=== PATIENT | female | born 1985 | race Caucasian/White ===

== ENCOUNTER 2024-09-26 09:25 | Outpatient (REF) | payer MEDICAID, SELFPAY ==
--- NOTE | 2024-09-26 09:28 | EMG_ITS ---
Bilateral median and ulnar motor and sensory studies were performed. Bilateral radial sensory studies were performed, and paraspinal muscles were tested with a needle. IMPRESSION: 1. Moderate right and mild to moderate left median neuropathy across carpal tunnel. 2. Mild bilateral ulnar neuropathy across cubital tunnel. 3. Bilateral Asim-Jaron anastomosis, a normal variant. MD ZORAIDA Berrios/MARQUITA / [id number]
== END 2024-09-26 09:26 | disposition home or self-care (01) ==
LOC: HO.NEURO 09:25
PROVIDERS: Visit Provider Family Medicine
DX: G56.03 Carpal tunnel syndrome, bilateral upper limbs (principal)
CPT/HCPCS: 95886; 95911

== ENCOUNTER 2024-10-25 11:44 | Outpatient (REF) | payer MEDICAID, SELFPAY ==
[2024-10-25 13:09] LABS: MANUAL DIFF FLAG NO
[2024-10-25 13:21] LABS: Basophils Percent Auto 0.2 % (0-2); Eosinophils Absolute Auto 0.1 X10*3/uL (0.0-0.4); Eosinophils Percent Auto 1.3 % (0-4); Hematocrit 37.8 % (37.0-47.0); Imm Gran Abs Auto 0.05 X10*3/uL (0.00-0.03); Imm Gran Pct Auto 0.6 % (0.0-0.4); Lymphocytes Absolute Auto 2.4 X10*3/uL (1.2-4.9); Lymphocytes Percent Auto 26.9 % (20-40); Mean Corpuscular HGB Conc 31.7 g/dl (31.0-35.0); Mean Corpuscular Hemoglobin 27.3 pg (27.0-33.0); Mean Corpuscular Volume 86.1 fL (80.0-98.0); Mean Platelet Volume 11.5 fL (9.4-12.3); Monocytes Absolute Auto 0.6 X10*3/uL (0.1-1.2); Monocytes Percent Auto 6.9 % (2-11); Neutrophils Absolute Auto 5.8 x10*3/uL (2.0-8.3); Neutrophils Percent Auto 64.1 % (45-73); Platelet Count 290 X10*3/uL (160-400); Red Blood Count 4.39 X10*6/uL (4.20-5.50); Red Cell Distribution Width 14.3 % (11.0-16.0)
[2024-10-26 04:36] LABS: Syphilis Screen Nonreactive (Nonreactive)
== END 2024-10-25 11:45 | disposition home or self-care (01) ==
LOC: HO.HHCL 11:44
PROVIDERS: Visit Provider Nurse Practitioner
DX: L65.9 Nonscarring hair loss, unspecified (principal)
CPT/HCPCS: 36415; 84443; 85025; 86780

== ENCOUNTER 2025-01-01 12:53 | Outpatient (AMB) | payer MEDICAID, SELFPAY ==
--- NOTE | 2025-01-01 13:14 | MHC.OFFVIS ---
Vital Signs 01/01/25 13:28 Height 5 ft 3 in Weight 214 lb BMI 37.9 Intake Visit Reasons: New Patient - Bilateral Hand CTS - EMG Done Intake Note: Cassi is a 39 year old right hand dominant female who presents today as a new patient with complaints of bilateral hand numbness and tingling. Patient reports numbness and tingling that occurs daily and constant, making it difficult to biological chemist, squeeze, and open and close lids. Patient verbalized how the numbness never goes away and it affects ADL. Denies finger locking. Has tried braces without relief. Denies any prior injuries or surgeries the hands. Patient is requesting a letter for Welfare stating she is unable to work right now due to difficulty using her hands. Design Printing Machine Setter Required: Yes Design Printing Machine Setter Language: Poiser Balance Services: Design Printing Machine Setter Present Design Printing Machine Setter Name: Cassi Information Interpreted: non-clinical & clinical Allergies amoxicillin Allergy (Verified 01/01/25 13:29) Hives HPI HPI New Patient - Bilateral Hand CTS - EMG Done: Details: Cassi is a 39 year old right hand dominant female who presents today as a new patient with complaints of bilateral hand numbness and tingling. Patient reports numbness and tingling that occurs daily and constant, making it difficult to biological chemist, squeeze, and open and close lids. Patient verbalized how the numbness never goes away and it affects ADL. Denies finger locking. Has tried braces without relief. Denies any prior injuries or surgeries the hands. Patient is requesting a letter for Welfare stating she is unable to work right now due to difficulty using her hands. [facility] Social History (Updated 01/01/25 @ 13:31 by SOCORRO Summers) Current occupational status: unemployed Current occupation: rt handed Review of Systems Const All systems reviewed & are unremarkable except as noted in HPI and below Physical Exam Vital Signs: BMI result Body Mass Index 37.9 Extrem Other: Neuro: Diminished sensation in the tips of all digits of bilateral hands in the office today No thenar or intrinsic wasting. Good APB muscle firing and good finger cross. Vascular: Capillary refill brisk. ROM: Patient can make a fist and extend all their digits. Skin: No lacerations or abrasions noted. General: No ecchymosis. No erythema or evidence of infection. Results Reviewed Results Reviewed: IMPRESSION: 1. Moderate right and mild to moderate left median neuropathy across carpal tunnel. 2. Mild bilateral ulnar neuropathy across cubital tunnel. 3. Bilateral Asim-Jaron anastomosis, a normal variant. MD ZORAIDA Berrios/MARQUITA Assessment & Plan Assessment & Plan (1) Bilateral carpal tunnel syndrome: Code(s): G56.03 - Carpal tunnel syndrome, bilateral upper limbs Category: Medical (2) Cubital tunnel syndrome, bilateral: Code(s): G56.23 - Lesion of ulnar nerve, bilateral upper limbs Category: Medical Plan 1. Bilateral carpal tunnel syndrome 2. 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
[2025-01-01 13:28] VITALS: BMI 37.9
--- OUTSIDE RECORDS SUMMARY | 2025-01-01 13:54 | XMS_ITS | Encounter Summary ---
Author Organization [employer] Address [address] [place] [address] [address] [place] [address] Care Team Providers Care Welt Beater Name Role Phone Rossana Klein NP Primary Care Provider [phone] Mariposa Alan CNP Primary Care Provider [phone] Reason for Referral * Consultation (Routine) - Authorized Specialty Diagnoses / Procedures Referred By Frankie irwin Referred To Contact Hand Surgery Diagnoses Carpal tunnel syndrome on both sides Mariposa Alan CNP [address] [place] [address] Phone: tel: fax: [facility] [address] [place] [address] Phone: tel: Referral ID Status Reason Start Date Expiration Date Visits Requested Visits Authorized [id number] Authorized Specialty Services Required 12/13/2024 12/13/2025 6 6 Encounter Details Date Type Department Care Team ([facility] st Contact Info) Description 12/04/2024 Telephone [facility] [address] [place], [place] [phone] Vidhi Willis, RN Social History Tobacco Use Types Packs/Day Years Used Date Smoking Tobacco: Never Smokeless Tobacco: Never Alcohol Use Standard Drinks/Week Comments Never 0 (1 standard drink = 0.6 oz pur e alcohol) Housing Stability Answer Date Recorded What is your housing situation today? I have alyssia tobar 04/14/[address] you li ve. Do you have problems with any of the following? None of the above 04/14/2024 Food Insecurity Answer Date Recorded Within the past 12 months, y ou worried that your food would run out before you got money to buy more: Sometimes True 2023 Within the past 12 months,th e food you bought just didn't last and you didn't have enough money to get more: Sometimes True 04/14/2024 Transportation Answer Date Recorded In the past 12 months, has l ack of transportation kept you from medical appts, meetings, work or from getting things needed for daily living? No 04/14/2024 Utilities Answer Date Recorded In the past 12 months, has t he [employer], gas, oil or water company threatened to shut off services in your home? No 04/14/2024 Comments Unknown Sex and Gender Information Value Date Recorded Sex Assigned at Female 09/21/2022 10:29 AM EDT Legal Sex Female 10:29 AM EDT Gender Identity Female 09/21/2022 10:29 AM EDT Sexual Orientation Straight 09/21/2022 10 :29 AM EDT documented as of this encounter Miscellaneous Notes * Addendum Note - Mariposa Alan CNP - 12/13/2024 10:38 AM ESTAddended by: MARIPOSA ALAN on: 12/13/2024 10:38 AM Modules accepted: Orders * Telephone Encounter - Mariposa Alan CNP - 12/13/2024 10:31 AM EST Result Communication EMG//Nerve Conduction 09/26/2024 IMPRESSION: 1. Moderate right and mild to moderate left median neuropathy across carpal tunnel. 2. Mild bilateral ulnar neuropathy across cubital tunnel. 3. Bilateral Asim-Jaron anastomosis, a normal variant Results were successfully communicated with the Patient, a voicemail was left at the patient's phone number provided. Referral placed to hand surgeon, advised pt to be on lookout for call from hand surgeon to set up appointment. Field Hauler ID: [id number] [place] * Telephone Encounter - Vidhi Willis RN - 12/04/2024 9:10 AM EST Tc to pt via [facility] plastering supervisor id: [id number] to let them know per PCP Please inform patient of negativelabs. Advise she schedule follow-up appointment if no improvement noted in hair loss complaint. Thanks. Pt reports that they completed their EMG and no one had called them back regarding their results. Pt reporting jenny hand pain and will like to know the next steps since this is causing them to beout of work. Pt was seen with Mariposa Alan NP and recommendations were Based on EMG results, will refer to hand surgeon as needed . Results were uploaded in chart on 09/26/24 and message forwarded to referral provider for review. * Telephone Encounter - Vidhi Willis RN - 12/04/2024 9:10 AM EST ----- Message from Rossana Klein sent at 12/03/2024 4:46 PM EST ----- Please inform patient of negative labs. Advise she schedule follow-up appointment if no improvementnoted in hair loss complaint. Thanks documented in this encounter Plan of Treatment Upcoming Encounters Date Type Department Care Team (Late st Contact Info) Description 01/24/2025 11:00 AM EST Office Visit [facility] [address] [place] [phone] Rossana Klein NP [address] [place] [address] Scheduled Referrals Name Type Priority Associated Diagnoses Orde r Schedule Referral to Hand Surgery Outpatient Referral Routine Carpal tunnel syndrome on both sides Expected: 12/13/2024 (Approximate), Expires: 12/13/2025 documented as of this encounter Visit Diagnoses Diagnosis Carpal tunnel syndrome on both sides- Primary Carpal tunnel syndrome documented in this encounter Care Teams Welt Beater Relationship Specialty Start Date End Date Rossana Klein NP [address] [place] [address] PCP - General Family Medicine 04/14/24 12/07/24 Mariposa Alan CNP [address] [place] [id number] PCP - General Family Medicine 12/08/24 documented as of this encounter
--- OUTSIDE RECORDS SUMMARY | 2025-01-01 13:54 | XMS_ITS | Clinical Summary ---
Author Organization [facility] Address [address] [place] [address] Care Team Providers Care Clip Wrapper Name Role Phone Kortney Alan JAYDE Primary Care Provider [phone] Allergies Active Allergy Reactions Criticality Noted Date Comments Amoxicillin Rash Low 12/30/2018 Aspirin 03/20/2019 Shellfish-Derived Products Swelling,Hives 03/20 Medications No known medications Active Problems Problem Noted Date Diagnosed Date Carpal tunnel syndrome on both sides 09/13/2024 Assessment & Plan (09/13/2024 3:57 PM EDT): Discussed treatment modalities including nighttime bracing, cortisone injections or oral steroids for severe pain, and surgery. Pt declines steroid therapy today but requested other pain medication today, educated pt that tylenol prn may be used but will not be effective for nerve pain. Will proceed with night bracing, tylenol 650 mg prn, and EMG nerve testing. Based on EMG results, will refer to hand surgeon as needed. Pt also informed that they will need a follow up appointment with PCP to evaluate bald spot. Illiteracy 01/30/2016 Obesity 01/30/2016 Encounters Date Type Department Care Team Description 12/04/2024 Telephone [facility] [address] [place] [phone] Vidhi Willis RN 10/25/2024 10:45 AM EST Office Visit [address] [phone] Rossana Klein NP Hair loss (Primary Dx); Elevated blood pressure reading without diagnosis of hypertension 10/23/2024 Travel 10/23/2024 Telephone [facility] [address] [place] [address] Rossana Klein NP Referral from Last 3 Months Immunizations Name Administration Dates Next Due Influenza injectable quadriv alent IIV4 with preservative 01/30/2016 Tdap 04/17/2023,01/30/2016 Social History Tobacco Use Types Packs/Day Years Used Date Smoking Tobacco: Never Smokeless Tobacco: Never Tobacco Cessation:Counseling Given: Not Answered Alcohol Use Standard Drinks/Week Comments Never 0 [...] the past 12 months, has t he electric, gas, oil or water company threatened to shut off services in your home? No 04/14/2024 Comments Unknown Sex and Gender Information Value Date Recorded Sex Assigned at Female 09/21/2022 10:29 AM EDT Legal Sex Female 10:29 AM EDT Gender Identity Female 09/21/2022 10:29 AM EDT Sexual Orientation Straight 09/21/2022 10 :29 AM EDT Last Filed Vital Signs Vital Sign Reading Time Taken Comments Blood Pressure 161/84 10/25/2024 10:48 AM EST Pulse 85 10/25/2024 10:48 AM EST Temperature 35.9 ??C (96.6 ??F) 10/25/2024 10:[address] Respiratory Rate 16 10/25/2024 10:48 AM EST Oxygen Saturation 99% 10/25/2024 10:48 AM EST Inhaled Oxygen Concentration - - Weight 108 kg (238 lb 3.2 oz) 10/25/2024 10:48 A M EST Height 160 cm (5' 3 ) 10/25/2024 10:48 AM EST Body Mass Index 42.2 10/25/2024 10:48 AM EST Plan of Treatment Upcoming Encounters Date Type Department Care Team (Late st Contact Info) Description 01/24/2025 11:00 AM EST Office Visit [facility] [address] [place] [address] Rossana Klein NP [address] [place] [address] Health Maintenance Due Date Last Done Comments Depression Screening 1986 Alcohol/Substance Use Screening 1998 Family Planning (PISQ) 2001 Hepatitis C Screening 2004 Hepatitis B Vaccines (1 of 3 - 19+ 3-dose series) 2005 Pap Smear 09/10/2023 09/10/2020 COVID-19 Vaccine (3 - 2023-2 5 season) 2024 02/09/2022, 01/19/2022 Influenza Vaccine (#1) 2024 01/30/2016 SDOH Screening 04/14/2025 04/14/2024 Cervical Cancer Screening 09/10/2025 HPV/Cotest 09/10/2025 09/10/2020 Lipid Panel 09/12/2025 09/12/2020 Tobacco Screening 09/13/2025 09/13/2024 DTaP/Tdap/Td Vaccines (3 - T d or Tdap) 04/17/2033 04/17/2023, 01/30/2016 Zoster Vaccines (1 of 2) 2036 RSV Patients and Patients Aged 60 years or older (1 - 1-dose 75+ series) 2061 HIV Screening Completed 09/12/2020 HIB Vaccines Aged Out No longer eligi ble based on patient's age to complete this topic HPV Vaccines Aged Out No longer eligi ble based on patient's age to complete this topic Hepatitis A Vaccines Aged Out No long er eligible based on patient's age to complete this topic IPV Vaccines Aged Out No longer eligi ble based on patient's age to complete this topic Meningococcal Vaccine Aged Out No radha renee eligible based on patient's age to complete this topic Pneumococcal Vaccine: Pediatrics (0 to 5 Years) and At-Risk Patients (6 to 49) Years) Aged Out No longer eligible b ased on patient's age to complete this topic RSV under 20 months Aged Out No longe r eligible based on patient's age to complete this topic Rotavirus Vaccines Aged Out No longer eligible based on patient's age to complete this topic Procedures Procedure Name Priority Date/Time Associated Diagnosis Comments SYPHILIS SCREEN Routine 10/25/2024 11:50 AM EST Hair loss CBC WITH AUTO DIFFERENTIAL Routine 10/25/2024 11:50 AM EST Hair loss TSH W/REFLEX TO FT4 Routine 10/25/2024 1 1:50 AM EST Hair loss HIV 1/2 ANTIGEN/ANTIBODY, FOURTH GENERATION W/RFL Routine 09/12/2020 10:59 AM EDT LIPID PANEL, STANDARD Routine 09/12/2020 10:59 AM EDT ZZZ HISTORICAL HPV DNA, HIGH RISK, CERVICAL Routine 09/10/2020 12:02 PM EDT THINPREP IMAGING SYSTEM PAP Routine 09/10/2020 12:02 PM EDT from Last 3 Months or Most Recently Relevant to Health Maintenance Results * Syphilis Screen (10/25/2024 11:50 AM EST) Syphilis Screen Nonreactive Nonreactive [facility] Blood Venous blood specimen / Unknown 10/25/2024 11:50 AM EST 10/25/2024 12:56 PM EST us Rossana Klein NP LAB BLOOD ORDERABLES Final Resu lt [facility] [address] [place] [phone] * TSH W/Reflex to FT4 (10/25/2024 11:50 AM EST) TSH reflex Free T4 1.30 0.32 - 4.0 uIU/mL [facility] Blood Venous blood specimen / Unknown 10/25/2024 11:50 AM EST 10/25/2024 12:56 PM EST us Rossana Klein CAR CLEANER LAB BLOOD ORDERABLES Final Resu lt [facility] [address] [place] [address] [phone] * (ABNORMAL) CBC auto differential (10/25/2024 11:50 AM EST) White Blood Count 9.0 4.8 - 10.8 X10*3/uL [facility] Red Blood Count 4.39 4.20 - 5.50 X10*6/uL [facility] Hemoglobin 12.0 12.0 - 16.0 g/dl [facility] Hematocrit 37.8 37.0 - 47.0 % [facility] Mean Corpuscular Volume 86.1 80.0 - 98.0 fL [facility] Mean Corpuscular Hemoglobin 27.3 27.0 - 33.0 pg [facility] Mean Corpuscular HGB Conc 31.7 31.0 - 35.0 g/dl [facility] Red Cell Distribution Width 14.3 11.0 - 16.0 % [facility] Platelet Count 290 160 - 400 X10*3/uL [facility] Mean Platelet Volume 11.5 9.4 - 12.3 fL [facility] Neutrophils Percent Auto 64.1 45 - 73 % [facility] Imm Gran Pct Auto 0.6(H) 0.0 - 0.4 % [facility] Lymphocytes Percent Auto 26.9 20 - 40 % [facility] Monocytes Percent Auto 6.9 2 - 11 % [facility] Eosinophils Percent Auto 1.3 0 - 4 % [facility] Basophils Percent Auto 0.2 0 - 2 % [facility] NRBC Pct Auto 0.0 0.0 - 0.2 /100WBC [facility] Neutrophils Absolute Auto 5.8 2.0 - 8.3 x10*3/uL [facility] Imm Gran Abs Auto 0.05(H) 0.00 - 0.03 X10*3/uL [facility] Lymphocytes Absolute Auto 2.4 1.2 - 4.9 X10*3/uL [facility] Monocytes Absolute Auto 0.6 0.1 - 1.2 X10*3/uL [facility] Eosinophils Absolute Auto 0.1 0.0 - 0.4 X10*3/uL [facility] Basophils Absolute Auto 0.0 0.0 - 0.2 X10*3/uL [facility] NRBC Abs Auto 0.000 0.0 - 0.012 X10*3/uL [facility] Blood Venous blood specimen / Unknown 10/25/2024 11:50 AM EST 10/25/2024 12:56 PM EST [facility] Final Resu lt [facility] [address] [place] [address] [phone] * HIV 1/2 ANTIGEN/ANTIBODY,FOURTH GENERATION W/RFL (09/12/2020 10:59 AM EDT) HIV-1/2 ANTIGEN AND ANTIBODIES, 4TH GENERATION W/ REFLEX NON-REACT TABITHA NON-REACT TABITHA [facility] Comment: HIV-1 antigen and HIV-1/HIV-2 antibodies were not detected. There is no laboratory evidence of HIV infection. ?? PLEASE NOTE: This information has been disclosed to you from records whose confidentiality may be protected by state law. ??If your state requires such protection, then the state law prohibits you from making any further disclosure of the information without the specific written consent of the person to whom it pertains, or as otherwise permitted by law. A general authorization for the release of medical or other information is NOT sufficient for this purpose. ? For additional information please refer to http://education.Enova Systems.BeiBei/faq/BYC405 (This link is being provided for informational/ educational purposes only.) ? The performance of this assay has not been clinically validated in patients less than 2 years old. ?? HIV-1/2 ANTIGEN AND ANTIBODIES, 4TH GENERATION W/ REFLEX NON-REACT TABITHA NON-REACT TABITHA [facility] Comment: HIV-1 antigen and HIV-1/HIV-2 antibodies were not detected. There is no laboratory evidence of HIV infection. ?? PLEASE NOTE: This information has been disclosed to you from records whose confidentiality may be protected by state law. ??If your state requires such protection, then the state law prohibits you from making any further disclosure of the information without the specific written consent of the person to whom it pertains, or as otherwise permitted by law. A general authorization for the release of medical or other information is NOT sufficient for this purpose. ? For additional information please refer to http://education.Domob/faq/YTB167 (This link is being provided for informational/ educational purposes only.) ? The performance of this assay has not been clinically validated in patients less than 2 years old. ?? 09/12/2020 10:5 9 AM EDT Tasha Fairbanks NP LAB BLOOD ORDERABLES Final Resul t [facility] [address] * LIPID PANEL, STANDARD (09/12/2020 10:59 AM EDT) HDL Cholesterol 53 > OR = 50 mg/dL [facility] Cholesterol, Total 139 <200 mg/dL [facility] LDL Cholesterol 71 mg/dL (calc) [facility] Comment: Reference range: <100 ?? Desirable range <100 mg/dL for primary prevention; ?? <70 mg/dL for patients with CHD or diabetic patients ?? with > or = 2 CHD risk factors. ?? LDL-C is now calculated using the Paco ?? calculation, which is a validated novel method providing ?? better accuracy than the Friedewald equation in the ?? estimation of LDL-C. ?? Asim HOGUE et al. KYREE. 2013;310(19): 6390-9286 ?? (http://education.Verge Solutions/faq/DVR676) Triglycerides 72 <150 mg/dL [facility] Chol/HDLC Ratio 2.6 <5.0 (calc) [facility] Cholesterol, Total 139 <200 mg/dL [facility] HDL Cholesterol 53 > OR = 50 mg/dL [facility] Non-HDL Cholesterol 86 <130 mg/dL (calc) [facility] Comment: For patients with diabetes plus 1 major ASCVD risk ?? factor, treating to a non-HDL-C goal of <100 mg/dL ?? (LDL-C of <70 mg/dL) is considered a therapeutic ?? option. Triglycerides 72 <150 mg/dL [facility] LDL Cholesterol 71 mg/dL (calc) [facility] Comment: Reference range: <100 ?? Desirable range <100 mg/dL for primary prevention; ?? <70 mg/dL for patients with CHD or diabetic patients ?? with > or = 2 CHD risk factors. ?? LDL-C is now calculated using the Paco ?? calculation, which is a validated novel method providing ?? better accuracy than the Friedewald equation in the ?? estimation of LDL-C. ?? Asim SS et al. KYREE. 2013;310(19): 0348-8774 ?? (http://Flats&Houses.K[employer]Haven.BeiBei/faq/XFO653) Chol/HDLC Ratio 2.6 <5.0 (calc) [facility] Non-HDL Cholesterol 86 <130 mg/dL (calc) [facility] Comment: For patients with diabetes plus 1 major ASCVD risk ?? factor, treating to a non-HDL-C goal of <100 mg/dL ?? (LDL-C of <70 mg/dL) is considered a therapeutic ?? option. 09/12/2020 10:5 9 AM EDT us Tasha Fairbanks NP LAB BLOOD ORDERABLES Final Resul t [facility] [address] * HPV DNA, HIGH RISK, CERVICAL (09/10/2020 12:02 PM EDT) HPV DNA, HIGH RISK, CERVICAL Not Detected NOT DETECTED [facility] Comment: Not Detected ?? High Risk HPV types (16,18,31,33,35,39,45,51,52, 56,58,59,66,68) were not detected. Other HPV types which cause anogenital lesions may be present. The significance of the other types of HPV in malignant processes has not been established. ?? Methodology: Real Time PCR ? 09/10/2020 12:0 2 PM EDT us Tasha Fairbanks NP HISTORICAL/NON ORDERABLE LABS Fi nal Result [facility] [address] [place] [address], * THINPREP TIS PAP (09/10/2020 12:02 PM EDT) [facility] Clinical Information: SEE COMMENT [facility] Comment:None given COMMENT SEE COMMENT [facility] Comment: EXPLANATORY NOTE: ? The Pap is a screening test for cervical cancer. It is ?? not a diagnostic test and is subject to false negative ?? and false positive results. It is most reliable when a ?? satisfactory sample, regularly obtained, is submitted ?? with relevant clinical findings and history, and when ?? the Pap result is evaluated along with historic and ?? current clinical information. ?? COMMENT: SEE COMMENT [facility] Comment: This Pap test has been evaluated with computer assisted technology. X Ray Control Equipment Repairer: SEE COMMENT [facility] Comment: BK,CT(ASCP) CT screening location: [address] Infection SEE COMMENT [facility] Comment:Trichomonas vaginali s identified. Interpretation/Resu lt: SEE COMMENT [facility] Comment:Negative for intraep ithelial lesion or malignancy. LMP: SEE COMMENT [facility] Comment:NONE GIVEN Prev. BX: NONE GIVEN [facility] Prev. PAP: SEE COMMENT [facility] Comment:NONE GIVEN SOURCE: SEE COMMENT [facility] Comment:None given Statement Of Adequacy: SEE COMMENT [facility] Comment: Satisfactory for evaluation. Endocervical/transformation zone component present. 09/10/2020 12:0 2 PM EDT us Tasha Fairbanks NP LAB PATHOLOGY ORDERABLES Final R esult [facility] [address] [place] [address], from Last 3 Months or Most Recently Relevant to Health Maintenance Insurance YesVideo C3 Care Teams Clip Wrapper Relationship Specialty Start Date End Date Kortney Alan CNP [address] [place] [id number] PCP - General Family Medicine 12/08/24
--- OUTSIDE RECORDS SUMMARY | 2025-01-01 13:55 | XMS_ITS | Clinical Summary ---
Author Organization [address] Address [address] [place] [phone] Phone Care Team Providers Care Java Enterprise Architect Name Role Phone Physician, No Pcp Primary Care Provider Unavaila ble Social History Tobacco Use Types Packs/Day Years Used Date Smoking Tobacco: Never Assessed Comments Unknown Sex and Gender Information Value Date Recorded Sex Assigned at Not on file Legal Sex Female 5:38 AM EST Gender Identity Not on file Sexual Orientation Not on file Plan of Treatment Health Maintenance Due Date Last Done Comments Hepatitis B Vaccines (1 of 3 - 19+ 3-dose series) 2005 Cervical Cancer Screening: P ap Smear 2007 DTaP,Tdap,and Td Vaccines (2 - Td or Tdap) 05/15/2023 04/17/2023 Depression Screening 12/21/2023 HIV Screening 12/21/2023 Hepatitis C Screening 12/21/2023 Social Influencers of Health Screening 12/21/2023 COVID-19 Vaccine ( - 2023-2 5 season) 2024 Influenza Vaccine (#1) 2024 HIB Vaccines Aged Out No longer eligi [...] on patient's age to complete this topic MMR Vaccines Aged Out No longer eligi ble based on patient's age to complete this topic Meningococcal ACWY Vaccine Aged Out N o longer eligible based on patient's age to complete this topic Meningococcal B Vacine Aged Out No lo nger eligible based on patient's age to complete this topic Pneumococcal Vaccine: Pediat rics (0 to 5 Years) and At-Risk Patients (6 to 64 Years) Aged Out No longer eligi ble based on patient's age to complete this topic RSV Immunization Patients Un alo 20 months Aged Out No longer eligible b ased on patient's age to complete this topic Varicella Vaccines Aged Out No longer eligible based on patient's age to complete this topic Insurance MEDICAID - [place] Care Teams Java Enterprise Architect Relationship Specialty Start Date End Date Physician, No Pcp PCP - General 10/09/24
--- OUTSIDE RECORDS SUMMARY | 2025-01-01 13:55 | XMS_ITS | Encounter Summary ---
Author Organization [facility] Address [address] [facility] 7t [place] [address] Care Team Providers Care Virtualization Architect Name Role Phone Rossana Klein CLINICAL ACCOUNT LIAISON Primary Care Provider [phone] Kortney Alan ACADEMIC SUPPORT ASSISTANT Primary Care Provider [phone] Reason for Referral * Imaging (Routine) - Closed Specialty Diagnoses / Procedures Referred By Frankie t Referred To Contact Radiology Diagnoses Tubo-ovarian abscess Procedures US Pelvis Transvaginal Fern Holly FNP [address] [place] [address] Phone: tel: fax: [facility] [address], [address] [place] [address] Phone: tel: fax: Referral ID Status Reason Start Date Expiration Date Visits Re quested Visits Authorized [id number] Closed 05/16/2024 05/16/2025 1 1 Encounter Details Date Type Department Care Team (Late st Contact Info) Description 05/16/2024 Orders Only [facility] MED & PEDS [address] [place], [place] [phone] Fern Holly FNP [address] [place] [address] Tubo-ovarian abscess (Primary Dx) Social History Tobacco Use Types Packs/Day Years [...] AM EDT documented as of this encounter Plan of Treatment Upcoming Encounters Date Type Department Care Team (Late st Contact Info) Description 01/24/2025 11:00 AM EST Office Visit [facility] MEDICINE [address] [place] [address] Rossana Klein NP [address] [place] [address] documented as of this encounter Procedures Procedure Name Priority Date/Time Associated Diagnosis Comments US PELVIS TRANSVAGINAL Routine 06/16/2024 Tubo-ovarian abscess documented in this encounter Results * US Pelvis Transvaginal (06/16/2024) Anatomical Region Laterality Modality Pelvis Ultrasound us Fern ESPARZA IMG US PROCEDURES Final Result documented in this encounter Visit Diagnoses Diagnosis Tubo-ovarian abscess- Primary Salpingitis and oophoritis not specified as acute, subacute, or chronic documented in this encounter Care Teams Virtualization Architect Relationship Specialty Start Date End Date Rossana Klein NP [address] [place] [address] PCP - General Family Medicine 04/14/24 12/07/24 Kortney Alan CNP [address] [place] [address] PCP - General Family Medicine 12/08/24 documented as of this encounter
--- OUTSIDE RECORDS SUMMARY | 2025-01-01 13:55 | XMS_ITS | Encounter Summary ---
Author Organization [facility] Address [address] 7[address] [place] [address] Care Team Providers Care Featheredger And Reducer Machine Name Role Phone Rossana Klein NP Primary Care Provider [phone] Kortney Alan CNP Primary Care Provider [phone] Reason for Visit * Reason Onset Date Comments Call Back Request 05/09/2024 Encounter Details Date Type Department Care Team ([facility] st Contact Info) Description 05/09/2024 Telephone [facility] MEDICINE [address] [place], [place] [phone] Rossana Klein NP [address] [place], [place] [phone] Call Back Request Social History Tobacco Use Types Packs/Day Years [...] t he electric, gas, oil or water [employer] threatened to shut off services in your home? No 04/14/2024 Comments Unknown Sex and Gender Information Value Date Recorded Sex Assigned at Female 09/21/2022 10:29 AM EDT Legal Sex Female 10:29 AM EDT Gender Identity Female 09/21/2022 10:29 AM EDT Sexual Orientation Straight 09/21/2022 10 :29 AM EDT documented as of this encounter Miscellaneous Notes * Telephone Encounter - Fritz Stephens RN - 05/17/2024 9:46 AM EDT Noted, Thanks * Telephone Encounter - VILMA Mixon - 05/16/2024 7:58 PM EDT Transvaginal US ordered * Telephone Encounter - Fritz Stephens RN - 05/16/2024 11:02 AM EDT Please review and advise for below message. * Telephone Encounter - Melo Hurley - 05/16/2024 10:11 AM EDT Tc from [place] with [facility] calling in regards to message prior. Evangelina informed inquired about this request a total of 3 times and after the 4th request they usually cancel the the request and await the order. * Telephone Encounter - Melo Hurley - 05/09/2024 9:02 AM EDT Tc from [place] with [facility] requesting call back regarding ultrasound order. [facility] received order for ultrasound of the pelvis and Evangelina informed they usually do these orders with a transvaginal ultrasound, she wanted to know if pcp would like that done as well or clarify why not. Please contact Evangelina at [phone]. documented in this encounter Plan of Treatment Upcoming Encounters Date Type Department Care Team ([facility] st Contact Info) Description 01/24/2025 11:00 AM EST Office Visit [facility] MEDICINE [address] [place] [address] Rossana Klein NP [address] [place] [address] documented as of this encounter Visit Diagnoses Not on filedocumented in this encounter Care Teams Featheredger And Reducer Machine Relationship Specialty Start Date End Date Rossana Klein NP [address] [place] [address] PCP - General Family Medicine 04/14/24 12/07/24 Kortney Alan CNP [address] [place] [address] PCP - General Family Medicine 12/08/24 documented as of this encounter
--- OUTSIDE RECORDS SUMMARY | 2025-01-01 13:55 | XMS_ITS | Encounter Summary ---
Author Organization [employer] [facility] Address [address] 7t [place] [address] Care Team Providers Care Conservation Of Resources Commissioner Name Role Phone Rossana Klein ENERGY CONTROL OFFICER Primary Care Provider [phone] Kortney Alan CNP Primary Care Provider [phone] Reason for Visit * Reason Onset Date Comments Imagin 05/11/2024 Encounter Details Date Type Department Care Team ([facility] st Contact Info) Description 05/11/2024 Telephone [facility] MEDICINE [address] [place], [place] [phone] Rossana Klein NP [address] [place], [place] [phone] Imagin Social History Tobacco Use Types Packs/Day Years [...] t he electric, gas, oil or water [employer] threatened to shut off services in your [...] Encounter - Fritz Stephens RN - 05/17/2024 9:45 AM EDT Noted. Thanks * Telephone Encounter - VILMA Mixon - 05/16/2024 7:59 PM EDT Duplicate request * Telephone Encounter - Fritz Stephens RN - 05/11/2024 4:00 PM EDT Please review and advise for below message. * Telephone Encounter - Pavan Borjas - 05/11/2024 11:12 AM EDT Tc avelino Thomas from [facility] calling to to report after reviewing the diagnostic notes in should be a US Pelvis & Transvaginal documented in this encounter Plan of Treatment Upcoming Encounters Date Type Department Care Team (Late st Contact Info) Description 01/24/2025 11:00 AM EST Office Visit [facility] MEDICINE [address] [place] [address] Rossana Klein NP [address] [place] [address] documented as of this encounter Visit Diagnoses Not on filedocumented in this encounter Care Teams Conservation Of Resources Commissioner Relationship Specialty Start Date End Date Rossana Klein NP [address] [place] [address] PCP - General Family Medicine 04/14/24 12/07/24 Kortney Alan CNP [address] [place] [address] PCP - General Family Medicine 12/08/24 documented as of this encounter
== END 2025-01-01 14:19 | disposition home or self-care (01) ==
DX: G56.03 Carpal tunnel syndrome, bilateral upper limbs (principal); G56.23 Lesion of ulnar nerve, bilateral upper limbs
CPT/HCPCS: 99204

== ENCOUNTER → 2025-01-01 12:53 | Outpatient (BNVA) | payer MEDICAID, SELFPAY | DX: G56.03 Carpal tunnel syndrome, bilateral upper limbs (principal); G56.23 Lesion of ulnar nerve, bilateral upper limbs | CPT/HCPCS: 99212 ==

== ENCOUNTER 2025-02-19 14:02 | Outpatient (AMB) | payer MEDICAID, SELFPAY ==
[2025-02-19 14:50] VITALS: BMI 37.9
--- NOTE | 2025-02-19 14:50 | A.OFFVIS_ITS ---
Vital Signs 02/19/25 14:50 Height 5 ft 3 in Weight 214 lb BMI 37.9 Intake Visit Reasons: OV - EMG Review Bilateral Hands Intake Note: Cassi is a 39 year old right hand dominant female who presents today for an EMG review of her bilateral hands. EMG/NCS done on 09/26/24 IMPRESSION: 1. Moderate right and mild to moderate left median neuropathy across carpal tunnel. 2. Mild bilateral ulnar neuropathy across cubital tunnel. 3. Bilateral Asim-Jaron anastomosis, a normal variant. Allergies amoxicillin Allergy (Verified 02/19/25 15:22) Hives HPI HPI OV - EMG Review Bilateral Hands: Details: Cassi is a 39 year old right hand dominant female who presents today for an EMG review of her bilateral hands. 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 EMG/NCS done on 09/26/24 IMPRESSION: 1. Moderate right and mild to moderate left median neuropathy across carpal tunnel. 2. Mild bilateral ulnar neuropathy across cubital tunnel. 3. Bilateral Asim-Jaron anastomosis, a normal variant. [facility] Social History Current occupational status: unemployed Current occupation: rt handed Review of Systems Const All systems reviewed & are unremarkable except as noted in HPI and below Physical Exam Vital Signs: BMI result Body Mass Index 37.9 Extrem Other: Neuro: Diminished sensation in the tips of all digits of bilateral hands in the office today No thenar or intrinsic wasting. Good APB muscle firing and good finger cross. Vascular: Capillary refill brisk. ROM: Patient can make a fist and extend all their digits. Skin: No lacerations or abrasions noted. General: No ecchymosis. No erythema or evidence of infection. Assessment & Plan Assessment & Plan (1) Cubital tunnel syndrome, bilateral: Code(s): G56.23 - Lesion of ulnar nerve, bilateral upper limbs Category: Medical (2) Bilateral carpal tunnel syndrome: Code(s): G56.03 - Carpal tunnel syndrome, bilateral upper limbs Category: Medical Plan 1. Cubital tunnel syndrome, right 2. Carpal tunnel syndrome, right Symptoms intermittent, daily, worse at night I educated the patient about the condition. I discussed both operative and nono perative treatment options. After lengthy discussion, The patient would like to proceed with surgery. The risks and benefits of operative treatment were discussed with the patient and the patient wishes to proceed with surgery. These risks include, but are not limited to, risk of damage to blood vessels, nerves, tendons, infection, recurrence, incomplete relief of preoperative symptoms, persistent pain, possible need for further surgery, and the risks associated with regional blocks and/or anesthesia. Plan is to take the patient to the operating room at some point in the next few weeks for the following procedures: 1. Cubital tunnel release, right, under general 2. Right carpal tunnel release under general All of the preoperative paperwork including the consent was discussed today. All of the patient's questions were answered in the clinic today. The patient understands that they will be in contact with our surgical services manager to discuss scheduling their procedure. Patient denies diabetes, blood thinners, asthma, heart issues, lung issues, kidney issues, or current smoking. 3. Cubital tunnel syndrome, left Carpal tunnel syndrome, left Symptoms constant, daily, worse at night Patient would like to proceed with intervention on the right side 1st Patient was advised that if surgery goes well on the right side, we will pursue operative intervention on the left Patient was amenable to this plan Coding Level of Care Code Est Pt Level 4 (43153) Diagnoses Cubital tunnel syndrome, bilateral G56.23 Bilateral carpal tunnel syndrome G56.03
--- OUTSIDE RECORDS SUMMARY | 2025-02-19 15:53 | XMS_ITS | Clinical Summary ---
Author Organization [employer] [facility] Address [address] [facility] 7t [place] [address] Care Team Providers Care Busher Helper Name Role Phone Kortney Alan CNP Primary Care Provider [phone] Allergies Active Allergy Reactions Criticality Noted Date [...] Encounters Date Type Department Care Team Description 02/12/2025 Telephone [facility] MEDICINE [address] [place] [address] Dipti Smith CNM 02/02/2025 Population Health Risk Score [facility] (C3) Department [address] [phone] Provider, Population Health Generic 01/31/2025 Patient Outreach [facility] MED[facility]INE [address] [place] [address] Kortney Alan CNP Care Coordination (CHW outreach SDOH pest control - referral completed ) 01/31/2025 Patient Outreach [facility] [place] [address] Kortney Alan CNP Pre-visit Planning (SDOH Screening positive and Tobacco screening negative) 01/18/2025 Telephone [facility] [place] [address] Kortney Alan CNP Chart Prep 01/04/2025 Travel 12/04/2024 Telephone [facility] [place] [place] [address] Vidhi Willis, HARINI from Last 3 Months Immunizations Name Administration [...] is your housing situation today? I have alyssiakassandra tobar 01/31/[address] you li ve. Do you have problems with any of the following? Pests such as bugs, ants, or mice 01/31/2025 Food Insecurity Answer Date Recorded Within the past 12 months, y ou worried that your food would run out before you got money to buy more: Often true 01/31/2025 Within the past 12 months,th e food you bought just didn't last and you didn't have enough money to get more: Often true 10/2025 Transportation Answer Date Recorded In the past 12 months, has l ack of transportation kept you from medical appts, meetings, work or from getting things needed for daily living? No 04/14/2024 Utilities Answer Date Recorded In the past 12 months, has t he electric, gas, oil or water company threatened to shut off services in your home? No 04/14/2024 Internet Access Answer Date Recorded Internet Access Q1 Yes 01/31/2025 Internet Access Q2 Not on file 01/31/2025 Comments Unknown Sex and Gender Information Value [...] Care Team (Late st Contact Info) Description 03/07/2025 2:45 PM EDT Office Visit [facility] MEDICINE [address] [place] [address] AlanKortney, [facility] [address] [place] [address] Health Maintenance Due Date Last Done Comments Depression Screening 1986 Alcohol/Substance Use Screening 1998 Family Planning (PISQ) 2001 Hepatitis C Screening 2004 Hepatitis B Vaccines (1 of 3 - 19+ 3-dose series) 2005 COVID-19 Vaccine (2023-2 5 season) 2024 02/09/2022, 01/19/2022 Influenza Vaccine (#1) 2024 01/30/2016 Cervical Cancer Screening 09/10/2025 HPV/Cotest 09/10/2025 09/10/2020 Pap Smear 09/10/2025 09/10/2020 Lipid Panel 09/12/2025 09/12/2020 Tobacco Screening 09/13/2025 09/13/2024 SDOH Screening 01/31/2026 01/31/2025 DTaP/Tdap/Td Vaccines (3 - T d or [...] Procedure Name Priority Date/Time Associated Diagnosis Comments HIV 1/2 ANTIGEN/ANTIBODY, FOURTH GENERATION W/RFL Routine 09/12/2020 10:59 AM EDT LIPID PANEL, STANDARD Routine 09/12/2020 10:59 AM EDT ZZZ HISTORICAL HPV DNA, HIGH RISK, CERVICAL Routine 09/10/2020 12:02 PM EDT THINPREP IMAGING SYSTEM PAP Routine 09/10/2020 12:02 PM EDT from Last 3 Months or Most Recently Relevant to Health Maintenance Results * HIV 1/2 ANTIGEN/ANTIBODY,FOURTH GENERATION W/RFL (09/12/2020 10:59 AM EDT) HIV-1/2 ANTIGEN AND ANTIBODIES, 4TH GENERATION W/ REFLEX NON-REACT TABITHA NON-REACT TABITHA [facility] Comment: HIV-1 antigen and HIV-1/HIV-2 [...] ? For additional information please refer to http://Spotplex.Igneous Systems/faq/WWT401 (This link is being provided for informational/ educational purposes only.) ? The performance of this assay has not been clinically validated in patients less than 2 years old. ?? HIV-1/2 ANTIGEN AND ANTIBODIES, 4TH GENERATION W/ REFLEX NON-REACT TABITHA NON-REACT TABITHA [facility] Comment: HIV-1 antigen and HIV-1/HIV-2 [...] ? For additional information please refer to http://Spotplex.Igneous Systems/faq/JMQ310 (This link is being provided for informational/ educational purposes only.) ? The performance of this assay has not been clinically validated in patients less than 2 years old. ?? 09/12/2020 10:5 9 AM EDT us Tasha Fairbanks NP LAB BLOOD ORDERABLES Final Resul t [facility] [address] * LIPID PANEL, STANDARD (09/12/2020 10:59 [...] ?? LDL-C is now calculated using the Asim-Solis ?? calculation, which is a validated novel method providing ?? better accuracy than the Friedewald equation in the ?? estimation of LDL-C. ?? Asim HOGUE et al. KYREE. 2013;310(19): 3923-2930 ?? (http://Spotplex.iSirona/faq/BNP717) Triglycerides 72 <150 mg/dL [facility] [...] ?? LDL-C is now calculated using the Asim-Solis ?? calculation, which is a validated novel method providing ?? better accuracy than the Friedewald equation in the ?? estimation of LDL-C. ?? Asim HOGUE et al. KYREE. 2013;310(19): 5535-0440 ?? (http://Adisn/faq/VHQ753) Chol/HDLC Ratio 2.6 <5.0 (calc) [facility] Non-HDL Cholesterol 86 <130 mg/dL (calc) [facility] Comment: For patients with diabetes plus 1 major ASCVD risk ?? factor, treating to a non-HDL-C goal of <100 mg/dL ?? (LDL-C of <70 mg/dL) is considered a therapeutic ?? option. 09/12/2020 10:5 9 AM EDT Tasha Fairbanks NP LAB BLOOD ORDERABLES Final Resul t Performing Organization Address [facility] de Phone Number [facility] [address] * HPV DNA, HIGH RISK, CERVICAL (09/10/2020 12:02 PM EDT) HPV DNA, HIGH RISK, CERVICAL Not Detected NOT DETECTED [facility] Comment: Not Detected ?? High Risk HPV types (16,18,31,33,35,39,45,51,52, 56,58,59,66,68) were not detected. Other HPV types which cause anogenital lesions may be present. The significance of the other types of HPV in malignant processes has not been established. ?? Methodology: Real Time PCR ? 09/10/2020 12:0 2 PM EDT Tasha Fairbanks NP HISTORICAL/NON ORDERABLE LABS Fi nal Result Performing Organization Address [facility] de Phone Number [facility] [address] * THINPREP TIS PAP (09/10/2020 12:02 PM EDT) Clinical Information: SEE COMMENT [facility] Comment:None given COMMENT SEE COMMENT [...] has been evaluated with computer assisted technology. Accounts Receivable Associate: SEE COMMENT [facility] Comment: BK,CT(ASCP) CT screening location: [address] Infection SEE COMMENT [facility] Comment:Trichomonas vaginali s identified. Interpretation/Resu lt: SEE COMMENT [facility] Comment:Negative for intraep ithelial lesion or malignancy. LMP: SEE COMMENT [facility] Comment:NONE GIVEN Prev. BX: NONE GIVEN [facility] Prev. PAP: SEE COMMENT [facility] Comment:NONE GIVEN SOURCE: SEE COMMENT [facility] Comment:None given Statement Of Adequacy: SEE COMMENT [facility] Comment: Satisfactory for evaluation. Endocervical/transformation zone component present. 09/10/2020 12:0 2 PM EDT us Tasha Fairbanks NP LAB PATHOLOGY ORDERABLES Final R esult [facility] [address] from Last 3 Months or Most Recently Relevant to Health Maintenance [facility] Care Teams Busher Helper Relationship Specialty Start Date End Date Kortney Alan CNP [address] [place] [address] PCP - General Family Medicine 12/08/24
--- OUTSIDE RECORDS SUMMARY | 2025-02-19 15:54 | XMS_ITS | Clinical Summary ---
Author Organization [address] Address [address] [place] [phone] Phone Care Team Providers Care Field Broomer Name Role Phone Physician, No Pcp Primary [...] Cervical Cancer Screening: P ap Smear 2007 Depression Screening 12/21/2023 HIV Screening 12/21/2023 Hepatitis C Screening 12/21/2023 Social Influencers of Health Screening 12/21/2023 COVID-19 Vaccine ( - 2023-2 5 season) 2024 Influenza Vaccine (#1) 2024 DTaP,Tdap,and Td Vaccines (2 - Td or Tdap) 04/17/2033 04/17/2023 HIB Vaccines Aged Out No longer eligi [...] topic Insurance MEDICAID - [place] Care Teams Field Broomer Relationship Specialty Start Date End Date Physician, No Pcp PCP - General 10/09/24
--- OUTSIDE RECORDS SUMMARY | 2025-02-19 15:54 | XMS_ITS | Encounter Summary ---
Author Organization [employer] [facility] Address [address] [facility] 7t [place] [address] Care Team Providers Care Coach Builder Name Role Phone Rossana Klein FEED CRUSHER Primary Care Provider Kortney Alan DREDGE MASTER Primary Care Provider [phone] Reason for Referral * Imaging (Routine) - Closed Specialty Diagnoses / Procedures Referred By Frankie t Referred To Contact Radiology Diagnoses Tubo-ovarian abscess Procedures US Pelvis Transvaginal Fern Holly FNP [address] [place] [address] Phone: tel: fax: [facility] [address] [facility] [address], [address] [place] [address] Phone: tel: fax: Referral ID Status Reason Start Date Expiration Date Visits Re quested Visits Authorized [id number] Closed 05/16/2024 05/16/2025 1 1 Encounter Details Date Type Department Care Team (Late st Contact Info) Description 05/16/2024 Orders Only [facility] MED & PEDS [address] [place], [place] [phone] Fern Holly FNP [address] [place] [address] Tubo-ovarian abscess (Primary Dx) Social History Tobacco [...] Description 03/07/2025 2:45 PM EDT Office Visit [facility] MEDICINE [address] [place] [address] Kortney Alan, JAYDE [address] [place] [address] documented as of this encounter Procedures Procedure [...] chronic documented in this encounter Care Teams Coach Builder Relationship Specialty Start Date End Date Rossana Klein NP [address] [place] [address] PCP - General Family Medicine 04/14/24 12/07/24 Kortney Alan CNP [address] [place], [place] [phone] PCP - General Family Medicine 12/08/24 documented as of this encounter
--- OUTSIDE RECORDS SUMMARY | 2025-02-19 15:54 | XMS_ITS | Encounter Summary ---
Author Organization [employer] [facility] Address [address] [facility] [place]t [place] [address] Care Team Providers Care Medical Office Receptionist Assistant Name Role Phone Rossana Klein EDGE BANDER HAND Primary Care Provider [phone] Kortney Alan CNP Primary Care Provider [phone] Reason for Visit * Reason Onset Date Comments Imagin 05/11/2024 Encounter Details Date Type Department Care Team ([facility] st Contact Info) Description 05/11/2024 Telephone [facility]INE [address] [place], [place] [phone] Rossana Klein NP 230 [place], [place] [phone] Imagin Social History Tobacco Use Types Packs/Day [...] t he electric, gas, oil or water [employer] threatened to shut off services in your [...] Description 03/07/2025 2:45 PM EDT Office Visit [facility] [address] [place] [address] Kortney Alan, JAYDE 230 [place], [place] [phone] documented as of this encounter Visit Diagnoses Not on filedocumented in this encounter Care Teams Medical Office Receptionist Assistant Relationship Specialty Start Date End Date Rossana Klein NP 230 [place] [address] PCP - General Family Medicine 04/14/24 12/07/24 Kortney Alan CNP 230 [place] [address] PCP - General Family Medicine 12/08/24 documented as of this encounter
--- OUTSIDE RECORDS SUMMARY | 2025-02-19 15:54 | XMS_ITS | Encounter Summary ---
Author Organization [employer] [facility] Address [address] [facility] 7t [place] [address] Care Team Providers Care Veneer Marker Name Role Phone Rossana Klein NP Primary Care Provider Kortney Alan CNP Primary Care Provider [phone] Reason for Visit * Reason Onset Date Comments Call Back Request 05/09/2024 Encounter Details Date Type Department Care Team ([facility] st Contact Info) Description 05/09/2024 Telephone [facility] MED[facility]INE 230 [place], [place] [phone] Rossana Klein NP 230 [place], [place] [phone] Call Back Request Social History Tobacco Use [...] t he electric, gas, oil or water [employer] threatened to shut off services in your [...] - 05/16/2024 10:11 AM EDT Tc from [place] with [facility] calling in regards to message prior. Evangelina informed inquired about this request a total of 3 times and after the 4th request they usually cancel the the request and await the order. * Telephone Encounter - Melo Hurley - 05/09/2024 9:02 AM EDT Tc from [place] with [facility] requesting call back regarding ultrasound order. [facility] received order for ultrasound of the pelvis and Evangelina informed they usually do these orders with a transvaginal ultrasound, she wanted to know if pcp would like that done as well or clarify why not. Please contact Evangelina at [phone]. documented in this encounter Plan of Treatment Upcoming Encounters Date Type Department Care Team (Late st Contact Info) Description 03/07/2025 2:45 PM EDT Office Visit [facility] MEDICINE [address] [place] [phone] Kortney Alan CNP 230 [place] [address] documented as of this encounter Visit Diagnoses Not on filedocumented in this encounter Care Teams Veneer Marker Relationship Specialty Start Date End Date Rossana Klein NP [address] [place] [address] PCP - General Family Medicine 04/14/24 12/07/24 Kortney Alan CNP [address] [place] [address] PCP - General Family Medicine 12/08/24 documented as of this encounter
== END 2025-02-19 15:22 | disposition home or self-care (01) ==
LOC: HO.HOS 14:02
DX: G56.23 Lesion of ulnar nerve, bilateral upper limbs (principal); G56.03 Carpal tunnel syndrome, bilateral upper limbs
CPT/HCPCS: 99214

== ENCOUNTER → 2025-02-19 14:02 | Outpatient (BNVA) | payer MEDICAID, SELFPAY | DX: G56.23 Lesion of ulnar nerve, bilateral upper limbs (principal); G56.03 Carpal tunnel syndrome, bilateral upper limbs | CPT/HCPCS: 99212 ==

== ENCOUNTER 2025-03-15 10:40 | Outpatient (REF) | payer MEDICAID, SELFPAY ==
--- OUTSIDE RECORDS SUMMARY | 2025-03-15 12:27 | XMS_ITS | Clinical Summary ---
Author Organization [address] Address [address] [place] [phone] Phone Care Team Providers Care Marine Fitter Name Role Phone Physician, No Pcp Primary [...] Influencers of Health Screening 12/21/2023 COVID-19 Vaccine (2023-2 5 season) 2024 Influenza Vaccine (Season Ended) 2025 DTaP,Tdap,and Td Vaccines (2 - Td or [...] age to complete this topic Meningococcal B Vaccine Aged Out No l onger eligible based on patient's age to complete [...] topic Insurance MEDICAID - [place] Care Teams Marine Fitter Relationship Specialty Start Date End Date Physician, No Pcp PCP - General 10/09/24
--- OUTSIDE RECORDS SUMMARY | 2025-03-15 12:27 | XMS_ITS | Encounter Summary ---
Author Organization [employer] Address [address] [facility] 7t [place] [address] Care Team Providers Care Vice President Research Name Role Phone Rossana Klein INK GRINDER Primary Care Provider [phone] Kortney Alan SUPERVISOR TRAVEL INFORMATION CENTER Primary Care Provider [phone] Reason for Visit * Reason Onset Date Comments Imagin 05/11/2024 Encounter Details Date Type Department Care Team ([facility] st Contact Info) Description 05/11/[address] [facility] MEDICINE 230 [place], [place] [phone] Rossana Klein NP 230 [place] [address] Imagin Social History Tobacco Use Types Packs/Day Years Used Date Smoking Tobacco: Never Smokeless Tobacco: Never Alcohol Use Standard Drinks/Week Comments Never 0 (1 standard drink = 0.6 oz pur e alcohol) Housing Stability Answer Date Recorded What is your housing situation today? I have alyssia amadou 04/14/[address] you li [...] t he electric, gas, oil or water [employer] threatened to shut off services in your [...] Borjas - 05/11/2024 11:12 AM EDT Tc from Martha from [facility] calling to to report after reviewing the diagnostic notes in should be a US Pelvis & Transvaginal documented in this encounter Plan of Treatment Not on file documented as of this encounter Visit Diagnoses Not on filedocumented in this encounter Care Teams Vice President Research Relationship Specialty Start Date End Date Rossana Klein NP [address] [place] [address] PCP - General Family Medicine 04/14/24 12/07/24 Kortney Alan CNP [address] [place] [address] PCP - General Family Medicine 12/08/24 documented as of this encounter
--- OUTSIDE RECORDS SUMMARY | 2025-03-15 12:27 | XMS_ITS | Encounter Summary ---
Author Organization [employer] Address [address] [place] [address] 7 [place] [address] Care Team Providers Care Life Enrichment Director Name Role Phone Rossana Klein STUDIO POTTER Primary Care Provider [phone] Kortney Alan MASK DESIGN ENGINEER Primary Care Provider [phone] Reason for Referral * Imaging (Routine) - Closed Specialty Diagnoses / Procedures Referred By Frankie t Referred To Contact Radiology Diagnoses Tubo-ovarian abscess Procedures US Pelvis Transvaginal Fren Holly FNP 230 [place] [address] Phone: tel: fax: [facility] [address] [facility], [address] [place] [address] Phone: tel: fax: Referral ID Status Reason Start Date Expiration Date Visits Re quested Visits Authorized [id number] Closed 05/16/2024 05/16/2025 1 1 Encounter Details Date Type Department Care Team (Late st Contact Info) Description 05/16/2024 Orders Only [facility] [address] [place] [address] Fern Holly FNP 230 [place], [place] [phone] Tubo-ovarian abscess (Primary Dx) Social History Tobacco [...] as of this encounter Plan of Treatment Not on file documented as of this encounter Procedures Procedure Name Priority Date/Time Associated Diagnosis Comments US PELVIS TRANSVAGINAL Routine 06/16/2024 Tubo-ovarian abscess documented in this encounter Results * US Pelvis Transvaginal (06/16/2024) Anatomical Region Laterality Modality Pelvis Ultrasound Fern Holly REGISTERED MASSAGE THERAPIST IMG US PROCEDURES Final Result documented in this encounter Visit Diagnoses Diagnosis Tubo-ovarian abscess- Primary Salpingitis and oophoritis not specified as acute, subacute, or chronic documented in this encounter Care Teams Life Enrichment Director Relationship Specialty Start Date End Date Rossana Klein NP 230 [place] [address] PCP - General Family Medicine 04/14/24 12/07/24 Kortney Alan CNP 230 [place], [place] [phone] PCP - General Family Medicine 12/08/24 documented as of this encounter
--- OUTSIDE RECORDS SUMMARY | 2025-03-15 12:27 | XMS_ITS | Clinical Summary ---
Author Organization [employer] [facility] Address 75 [facility] 7t [place] [address] Care Team Providers Care Animal Ecologist Name Role Phone Kortney Alan CNP Primary Care Provider [phone] Allergies Active Allergy Reactions Criticality Noted Date [...] Encounters Date Type Department Care Team Description 03/07/2025 2:45 PM EDT Office Visit [facility] [address] [place] [phone] Kortney Alan CNP Encounter for screening examination for sexually transmitted disease (Primary Dx); Healthcare maintenance; Cyst of uterus 03/07/2025 Travel 02/28/2025 Patient Outreach [facility] [address] [place] [phone] Kortney Alan CNP Pre-visit Planning (SDOH screening negative and Tobacco screening negative) 02/28/2025 Telephone [facility] [address] [place] [phone] Kortney Alan CNP Chart Prep 02/12/2025 Telephone [facility] [address] [place] [address] Dipti Smith CNM 02/02/2025 Population Health Risk Score [facility] [address] [place] [phone] Provider, Population Health Generic 01/31/2025 Patient Outreach [facility] [address] [place] [address] Kortney Alan CNP Care Coordination ([facility] outreach SDOH pest control - referral completed ) 01/31/2025 Patient Outreach [facility] [place] [address] Kortney Alan CNP Pre-visit Planning (SDOH Screening positive and Tobacco screening negative) 01/18/2025 Telephone [facility] [place] [address] Kortney Alan CNP Chart Prep 01/04/2025 Travel from Last 3 Months Immunizations Name Administration Dates Next Due Influenza injectable quadriv alent IIV4 with preservative 01/30/2016 Tdap 04/17/2023,01/30/2016 Family History Medical History Relation Name Comments Diabetes type II Mother Relation Name Status Comments Mother Social History Tobacco Use Types Packs/Day Years Used Date Smoking Tobacco: Never Smokeless Tobacco: Never Tobacco Cessation:Counseling Given: Not Answered Alcohol Use Standard Drinks/Week Comments Never 0 (1 standard drink = 0.6 oz pur e alcohol) Depression Answer Date Recorded Patient Health Questionnaire-9 Score 6 03/07/2025 Patient Health Questionnaire-9 Score 6 03/07/2025 Last PHQ-9: Questionnaire Data Not on file 0 03/07/2025 Housing Stability Answer Date Recorded What is your housing situation today? I have alyssia tobar 01/31/[address] you [...] off services in your home? No 04/14/2024 Depression Answer Date Recorded Patient Health Questionnaire-2 Score 3 03/07/2025 Internet Access Answer Date Recorded Internet Access [...] Sign Reading Time Taken Comments Blood Pressure 136/82 03/07/2025 2:17 PM EDT Pulse 94 03/07/2025 2:17 PM EDT Temperature 36.5 ??C (97.7 ??F) 03/07/2025 2:17 PM ED T Respiratory Rate 20 03/07/2025 2:17 PM EDT Oxygen Saturation 98% 03/07/2025 2:17 PM EDT Inhaled Oxygen Concentration - - Weight 112 kg (246 lb 12.8 oz) 03/07/2025 2:17 P M EDT Height 160 cm (5' 3 ) 03/07/2025 2:17 PM EDT Body Mass Index 43.72 03/07/2025 2:17 PM EDT Plan of Treatment Health Maintenance Due Date Last Done Comments Alcohol/Substance Use Screening 1998 Hepatitis C Screening 2004 Hepatitis B Vaccines (1 of - 19+ 3-dose series) 2005 COVID-19 Vaccine (2023-2 5 season) 2024 02/09/2022, 01/19/2022 Influenza Vaccine (#1) 2024 01/30/2016 Cervical Cancer Screening 09/10/2025 HPV/Cotest 09/10/2025 09/10/2020 Pap Smear 09/10/2025 09/10/2020 Lipid Panel 09/12/2025 09/12/2020 SDOH Screening 01/31/2026 01/31/2025 Depression Screening 03/07/2026 03/07/2025, 03/07/2025 Tobacco Screening 03/07/2026 03/07/2025 Family Planning (PISQ) 03/08/2026 03/08/2025 DTaP/Tdap/Td Vaccines (3 - T d or [...] GENERATION W/ REFLEX NON-REACT TABITHA NON-REACT TABITHA [facility] Comment: HIV-1 antigen and HIV-1/HIV-2 [...] ? For additional information please refer to http://[employer]ge[employer].Postcron/faq/XPC219 (This link is being provided for informational/ educational purposes only.) ? The performance of this assay has not been clinically validated in patients less than 2 years old. ?? HIV-1/2 ANTIGEN AND ANTIBODIES, 4TH GENERATION W/ REFLEX NON-REACT TABITHA NON-REACT TABITHA [facility] Comment: HIV-1 antigen and HIV-1/HIV-2 [...] ? For additional information please refer to http://Tradege[employer].Postcron/faq/NTF669 (This link is being provided for informational/ educational purposes only.) ? The performance of this assay has not been clinically validated in patients less than 2 years old. ?? 09/12/2020 10:5 9 AM EDT us Tasha Fairbanks NP LAB BLOOD ORDERABLES Final Resul t [facility] [address] [place] [address], * LIPID PANEL, STANDARD (09/12/2020 10:59 AM [...] ?? Asim SS et al. KYREE. 2013;310(19): 3075-3516 ?? (http://education.[employer]/faq/XRL242) Triglycerides 72 <150 mg/dL [facility] [...] ?? Asim SS et al. KYREE. 2013;310(19): 7784-7310 ?? (http://education.[employer]/faq/RLP805) Chol/HDLC Ratio 2.6 <5.0 (calc) [facility] [...] ORDERABLES Final Resul t Performing Organization Address [facility] Phone Number [facility] [address] * HPV DNA, HIGH RISK, CERVICAL (09/10/2020 12:02 PM EDT) HPV DNA, HIGH RISK, CERVICAL Not Detected NOT DETECTED [facility] Comment: Not Detected ?? High [...] LABS Fi nal Result Performing Organization Address [facility] de Phone Number [facility] [address] [place] [address], * THINPREP TIS PAP (09/10/2020 12:02 PM EDT) Clinical Information: SEE COMMENT [facility] Comment:None given COMMENT SEE COMMENT [...] has been evaluated with computer assisted technology. Inspector Screen Printing: SEE COMMENT [facility] Comment: BK,CT(ASCP) CT screening location: [address] Infection SEE COMMENT [facility] Comment:Trichomonas vaginali s identified. Interpretation/Resu lt: SEE COMMENT [facility] Comment:Negative for intraep ithelial lesion or malignancy. LMP: SEE COMMENT [facility] Comment:NONE GIVEN Prev. BX: NONE GIVEN [facility] Prev. PAP: SEE COMMENT [facility] Comment:NONE GIVEN SOURCE: SEE COMMENT [facility] Comment:None given Statement Of Adequacy: SEE COMMENT [facility] Comment: Satisfactory for evaluation. Endocervical/transformation zone component present. 09/10/2020 12:0 2 PM EDT us Tasha Fairbanks NP LAB PATHOLOGY ORDERABLES Final R esult [facility] [address] from Last 3 Months or Most Recently Relevant to Health Maintenance Insurance [employer] Care Teams Animal Ecologist Relationship Specialty Start Date End Date Kortney Alan CNP [address] [place] [address] [phone] PCP - General Family Medicine 12/08/24
--- OUTSIDE RECORDS SUMMARY | 2025-03-15 12:27 | XMS_ITS | Encounter Summary ---
Author Organization [employer] Address [address] [facility] 7t [place] [address] Care Team Providers Care Grants Director Name Role Phone Rossana Klein TECHNICAL COMMUNICATOR Primary Care Provider [phone] Kortney Alan SOCK FOLDER Primary Care Provider [phone] Reason for Visit * Reason Onset Date Comments Call Back Request 05/09/2024 Encounter Details Date Type Department Care Team ([facility] st Contact Info) Description 05/09/[address] [facility] MEDICINE 230 [place], [place] [phone] Rossana Klein NP [address] [place] [address] Call Back Request Social History Tobacco Use [...] - 05/16/2024 10:11 AM EDT Tc from Evangelina with [facility] calling in regards to message prior. Evangelina informed inquired about this request a total of 3 times and after the 4th request they usually cancel the the request and await the order. * Telephone Encounter - Melo Hurley - 05/09/2024 9:02 AM EDT Tc from Evangelina with [facility] requesting call back regarding ultrasound order. [facility] received order for ultrasound of the pelvis and Evangelina informed they usually do these orders with a transvaginal ultrasound, she wanted to know if pcp would like that done as well or clarify why not. Please contact Evangelina at [phone]. documented in this encounter Plan of Treatment Not on file documented as of this encounter Visit Diagnoses Not on filedocumented in this encounter Care Teams Grants Director Relationship Specialty Start Date End Date Rossana Klein NP [address] [place] [address] PCP - General Family Medicine 04/14/24 12/07/24 Kortney Alan CNP [address] [place] [address] PCP - General Family Medicine 12/08/24 documented as of this encounter
[2025-03-15 13:10] LABS: MANUAL DIFF FLAG NO
[2025-03-15 13:20] LABS: Basophils Percent Auto 0.2 % (0-2); Eosinophils Absolute Auto 0.1 X10*3/uL (0.0-0.4); Eosinophils Percent Auto 1.5 % (0-4); Hemoglobin 12.4 g/dl (12.0-16.0); Imm Gran Abs Auto 0.04 X10*3/uL (0.00-0.03); Imm Gran Pct Auto 0.4 % (0.0-0.4); Lymphocytes Percent Auto 20.9 % (20-40); Mean Corpuscular HGB Conc 31.8 g/dl (31.0-35.0); Mean Corpuscular Hemoglobin 26.6 pg (27.0-33.0); Mean Corpuscular Volume 83.7 fL (80.0-98.0); Mean Platelet Volume 11.5 fL (9.4-12.3); Monocytes Absolute Auto 0.7 X10*3/uL (0.1-1.2); Monocytes Percent Auto 7.9 % (2-11); Neutrophils Absolute Auto 6.5 x10*3/uL (2.0-8.3); Neutrophils Percent Auto 69.1 % (45-73); Platelet Count 262 X10*3/uL (160-400); Red Blood Count 4.66 X10*6/uL (4.20-5.50); Red Cell Distribution Width 17.2 % (11.0-16.0); White Blood Count 9.4 X10*3/uL (4.8-10.8)
[2025-03-15 13:24] LABS: Estimated Average Glucose 131 mg/dL; Hemoglobin A1C 146.8201 umol/L; Hemoglobin A1c % 6.2 % (<6.0); Total Hemoglobin (HGBA1C) 3303.9008 umol/L
[2025-03-15 13:40] LABS: Alanine Aminotransferase 17 U/L (0-31); Alkaline Phosphatase 78 U/L (39-117); Anion Gap 11 (12-20); Aspartate Amino Transferase 21 U/L (5-31); Bilirubin Total 0.4 mg/dL (0.0-1.0); Blood Urea Nitrogen 7 mg/dL (9-16); Calcium 8.8 mg/dL (8.4-10.2); Carbon Dioxide 27 mmol/L (22-29); Chloride 105 mmol/L (96-108); Cholesterol 152 mg/dL (<200); Estimated Glomerular Filt Rate > 60; Glucose Random 109 mg/dL (60-115); HDL Cholesterol 49 mg/dL (>40); LDL Cholesterol Calculated 84 mg/dL (<100); Potassium 3.7 mmol/L (3.3-5.1); Sodium 139 mmol/L (135-145); Total Protein 7.6 g/dL (6.5-8.0); Triglycerides 95 mg/dL (<150)
[2025-03-15 13:55] LABS: HIV AB/AG Nonreactive (Nonreactive); HIV Num 1 0.05 S/CO (0.00-0.99); ~HepC Num1 0.19 S/CO (0.00-0.79); ~Hepatitis C Antibody Nonreactive (Nonreactive)
[2025-03-15 17:16] LABS: CT PCR NOT DETECTED (Not Detect.); NG PCR NOT DETECTED (Not Detect.)
[2025-03-19 17:03] LABS: RPR Rapid Plasma Reagin NON-REACTIVE (NON-REACTIVE)
== END 2025-03-15 10:41 | disposition home or self-care (01) ==
LOC: HO.HHCL 10:40
DX: Z00.00 Encounter for general adult medical examination without abnormal findings (principal); Z11.3 Encounter for screening for infections with a predominantly sexual mode of transmission
CPT/HCPCS: 80053; 80061; 83036; 85025; 86592; 86803; 87389; 87491; 87591

== ENCOUNTER 2025-03-27 07:53 | Outpatient (AMB) | payer MEDICAID, SELFPAY ==
--- OUTSIDE RECORDS SUMMARY | 2025-03-27 07:56 | XMS_ITS | Clinical Summary ---
Author Organization [employer] Address [address] [facility] 7t [place] [address] Care Team Providers Care Spice Room Worker Name Role Phone Kortney Alan CNP Primary Care Provider [phone] Allergies Active Allergy Reactions Criticality Noted Date [...] Encounters Date Type Department Care Team Description 03/21/2025 Telephone [facility] [address] [place] [phone] Arlet Wagner [place] Appointment Request 03/20/2025 Telephone [facility] [address] [place] [address] Kortney Alan CNP Results 03/07/2025 2:45 PM EDT Office Visit [facility] [address] [place] [address] Kortney Alan CNP Encounter for screening examination for sexually transmitted disease (Primary Dx); Healthcare maintenance; Cyst of uterus 03/07/2025 Travel 02/28/2025 Patient Outreach [address] [address] Kortney Alan CNP Pre-visit Planning (SDOH screening negative and Tobacco screening negative) 02/28/[address] [address] Kortney Alan CNP Chart Prep 02/12/[address] [address] Dipti Smith CNM 02/02/2025 Population Health Risk Score Community [facility] () [address] [phone] Provider, Population Health Generic 01/31/2025 Patient Outreach [address] [address] Kortney Alan CNP Care Coordination (CHW outreach SDOH pest control - referral completed ) 01/31/2025 Patient Outreach [address] [address] Kortney Alan CNP Pre-visit Planning (SDOH Screening positive and Tobacco screening negative) 01/18/[address] [address] Kortney Alan CNP Chart Prep 01/04/2025 Travel [...] 03/07/2025 2:17 PM EDT Plan of Treatment Upcoming Encounters Date Type Department Care Team (Late st Contact Info) Description 05/04/2025 10:15 AM EDT Office Visit [facility] [address] [place] [address] Kortney Alan, PROOF CARRIER [address] [place], [place] [phone] Health Maintenance Due Date Last Done Comments Alcohol/Substance Use Screening 1998 Hepatitis B Vaccines (1 of 3 - 19+ 3-dose series) 2005 COVID-19 Vaccine ( - 2023-2 5 season) 2024 02/09/2022, 01/19/2022 Influenza Vaccine (#1) 2024 01/30/2016 Cervical Cancer Screening 09/10/2025 HPV/Cotest 09/10/2025 09/10/2020 Pap Smear 09/10/2025 09/10/2020 SDOH Screening 01/31/2026 01/31/2025 Depression Screening 03/07/2026 03/07/2025, 03/07/2025 Tobacco Screening 03/07/2026 03/07/2025 Family Planning (PISQ) 03/08/2026 03/08/2025 Diabetes: Hemoglobin A1C 03/15/2026 025, 09/12/2020 Lipid Panel 03/15/2030 03/15/2025, 09/12/2020 DTaP/Tdap/Td Vaccines (3 - T d or Tdap) 04/17/2033 04/17/2023, 01/30/2016 Zoster Vaccines (1 of 2) 2036 RSV Patients and Patients Aged 60 years or older (1 - 1-dose 75+ series) 2061 HIV Screening Completed 03/15/2025, 09/12/2020 Hepatitis C Screening Completed 03/15/2025 HIB Vaccines Aged Out No longer eligi [...] Procedure Name Priority Date/Time Associated Diagnosis Comments RPR (MONITOR) W/REFL TITER Routine 03/15/2025 10:43 AM EDT Encounter for screening examination for sexually transmitted disease HEPATITIS C AB W/REFL TO HCV RNA, QN, PCR Routine 03/15/2025 10:43 AM EDT Encounter for screening examination for sexually transmitted disease HIV 1/2 ANTIGEN/ANTIBODY, FOURTH GENERATION W/RFL Routine 03/15/2025 10:43 AM EDT Encounter for screening examination for sexually transmitted disease COMPREHENSIVE METABOLIC PANEL Routine 03/15/2025 10:43 AM EDT Healthcare maintenance CBC WITH AUTO DIFFERENTIAL Routine 03/15/2025 10:43 AM EDT Healthcare maintenance HEMOGLOBIN A1C Routine 03/15/2025 10:43 AM EDT Healthcare maintenance LIPID PANEL, STANDARD Routine 03/15/2025 10:43 AM EDT Healthcare maintenance CHLAMYDIA/N. GONORRHOEAE RNA, TMA, UROGENITAL Routine 03/15/2025 10:43 AM EDT Encounter for screening examination for sexually transmitted disease ZZZ HISTORICAL HPV DNA, HIGH RISK, CERVICAL Routine 09/10/2020 12:02 PM EDT THINPREP IMAGING SYSTEM PAP Routine 09/10/2020 12:02 PM EDT from Last 3 Months or Most Recently Relevant to Health Maintenance Results * (ABNORMAL) CBC auto differential (03/15/2025 10:43 AM EDT) White Blood Count 9.4 4.8 - 10.8 X10*3/uL [facility] Red Blood Count 4.66 4.20 - 5.50 X10*6/uL [facility] Hemoglobin 12.4 12.0 - 16.0 g/dl [facility] Hematocrit 39.0 37.0 - 47.0 % [facility] Mean Corpuscular Volume 83.7 80.0 - 98.0 fL [facility] Mean Corpuscular Hemoglobin 26.6(L) 27.0 - 33.0 pg [facility] Mean Corpuscular HGB Conc 31.8 31.0 - 35.0 g/dl [facility] Red Cell Distribution Width 17.2(H) 11.0 - 16.0 % [facility] Platelet Count 262 160 - 400 X10*3/uL [facility] Mean Platelet Volume 11.5 9.4 - 12.3 fL [facility] Neutrophils Percent Auto 69.1 45 - 73 % [facility] Imm Gran Pct Auto 0.4 0.0 - 0.4 % [facility] Lymphocytes Percent Auto 20.9 20 - 40 % [facility] Monocytes Percent Auto 7.9 2 - 11 % [facility] Eosinophils Percent Auto 1.5 0 - 4 % [facility] Basophils Percent Auto 0.2 0 - 2 % [facility] NRBC Pct Auto 0.0 0.0 - 0.2 /100WBC [facility] Neutrophils Absolute Auto 6.5 2.0 - 8.3 x10*3/uL [facility] Imm Gran Abs Auto 0.04(H) 0.00 - 0.03 X10*3/uL [facility] Lymphocytes Absolute Auto 2.0 1.2 - 4.9 X10*3/uL [facility] Monocytes Absolute Auto 0.7 0.1 - 1.2 X10*3/uL [facility] Eosinophils Absolute Auto 0.1 0.0 - 0.4 X10*3/uL [facility] Basophils Absolute Auto 0.0 0.0 - 0.2 X10*3/uL [facility] NRBC Abs Auto 0.000 0.0 - 0.012 X10*3/uL [facility] Blood Venous blood specimen / Unknown 03/15/2025 10:43 AM EDT 03/15/2025 1:07 PM EDT [facility] LAB BLOOD ORDERABLES Radha l Result Performing Organization Address [facility]/ZIP Co de Phone Number [facility] [address] [place] [phone] * Hepatitis C Antibody with Reflex to HCV, RNA, Quantitative, Real-Time PCR (03/15/2025 10:43 AM EDT) Pathologist [facility] Hepatitis C Antibody Nonreactive Nonreactive [facility] Comment:Antibodies to HCV no t detected; does not exclude early acuteHCV infection. Blood Venous blood specimen / Unknown 03/15/2025 10:43 AM EDT 03/15/2025 1:07 PM EDT [facility] LAB BLOOD ORDERABLES Radha l Result Performing Organization Address [facility]/ZIP Co de Phone Number [facility] [address] [place] [phone] * Chlamydia/N. Gonorrhoeae RNA, TMA, Urogenitial (03/15/2025 10:43 AM EDT) Pathologist [facility] CT PCR NOT DETECTED Not Detect. [facility] Comment:A not detected test result does not exclude the possibilityof infection because test results can be affected byimproper specimen collection, concurrent antibiotic therapy,or the number of organisms in the specimen which may bebelow the sensitivity of the test. As with many diagnostictests, results from the Xpert CT/NG assay should beinterpreted in conjunction with other laboratory andclinical data available to the clinician.Xpert CT/NG performance has not been evaluated in patientsless than 14 years of age. The assay should not be used forthe evaluationof suspected sexual abuse or for other medico-legalindications. Additional testing is recommended in anycircumstance when false positive or false negative resultscould lead to adverse medical, social or psychologicalconsequences. NG PCR NOT DETECTED Not Detect. [facility] Comment:A not detected test result does not exclude the possibilityof infection because test results can be affected byimproper specimen collection, concurrent antibiotic therapy,or the number of organisms in the specimen which may bebelow the sensitivity of the test. As with many diagnostictests, results from the Xpert CT/NG assay should beinterpreted in conjunction with other laboratory andclinical data available to the clinician.Xpert CT/NG performance has not been evaluated in patientsless than 14 years of age. The assay should not be used forthe evaluationof suspected sexual abuse or for other medico-legalindications. Additional testing is recommended in anycircumstance when false positive or false negative resultscould lead to adverse medical, social or psychologicalconsequences. Urine (Urine, Random) 03/15/2025 10:43 AM EDT 03/15/2025 1:02 PM EDT Narrative [facility] - 03/15/2025 5:17 PM EDT Urine [facility] LAB MICROBIOLOGY - GENERA L ORDERABLES Final Result Performing Organization Address City/[facility] Co de Phone Number [facility] [address] [place] [phone] * RPR (Monitor) with Reflex to??Titer (03/15/2025 10:43 AM EDT) RPR (Monitor) w/Refl Titer NON-REACTI VE NON-REACT TABITHA [facility] Comment:THIS TEST WAS PERFOR MED AT:[facility] [place] [phone] BANG MD Rapid Plasma Reagin Ab Titer TNP [facility] Blood Venous blood specimen / Unknown 03/15/2025 10:43 AM EDT 03/15/2025 1:07 PM EDT [facility] LAB BLOOD ORDERABLES Radha l Result Performing Organization Address City/[facility] Co de Phone Number [facility] [address] [place] [phone] [phone] * HIV-1/2 Antigen and Antibodies, Fourth Generation, with Reflexes (03/15/2025 10:43 AM EDT) HIV AB/AG Nonreactive Nonreactive [facility] Comment:HIV-1 p24 Ag and/or HIV-1/HIV-2 Ab not detected.A test result that is nonreactive does not exclude thepossibility of exposure to or infection with HIV-1 and/orHIV-2. Nonreactive results in this assay for individualswith prior exposure to HIV-1 and/or HIV-2 may be due toantigen and antibody levels that are below the limit ofdetection of this assay.The [employer] HIV Ag/Ab Combo assay result andsupplemental assay results should be interpreted inconjunction with the patient's clinical presentation,history and other laboratory results. If the results areinconsistent with clinical evidence, additional testing issuggested to confirm the result. Blood Venous blood specimen / Unknown 03/15/2025 10:43 AM EDT 03/15/2025 1:07 PM EDT [facility] LAB BLOOD ORDERABLES Radha l Result Performing Organization Address [facility] Co de Phone Number [facility] [address] [place] [address] [phone] * (ABNORMAL) Hemoglobin A1c (03/15/2025 10:43 AM EDT) Hemoglobin A1c 6.2(H) <6.0 % [facility] Comment:Hemoglobin A1C Refer ence Range Adults: 4.8 - 6.0 % Non diabetic: < 6.0 % Goal: < 7.0 %Additional Action Suggested: > 8.0 %Note: Hemoglobin A1c results are invalid for patients with abnormal amounts of HbF. Blood transfusions may impact the HbA1c concentration in the patient sample. Estimated Average Glucose 131 mg/dL [facility] Comment:eAG = Estimated ave rage glucose which is %A1C expressed asaverage glucose, using the formula of the I4Z-SifnhdxSuqjhla Glucose study (ADAG), Diabetes Care, Vol.31,#8,Jun. 2007 Blood Venous blood specimen / Unknown 03/15/2025 10:43 AM EDT 03/15/2025 1:07 PM EDT [facility] LAB BLOOD ORDERABLES Radha l Result Performing Organization Address [facility] Co de Phone Number [facility] [address] [place] [phone] * Lipid Panel, Standard (03/15/2025 10:43 AM EDT) Triglycerides 95 <150 mg/dL [facility] Comment:Desirable Triglyceri de: less than 150 mg/dLBorderline High Triglyceride 150-199 mg/dLHigh Triglyceride: 200-499 mg/dLVery High Triglyceride: greater than or equal to 5OO mg/dL Cholesterol 152 <200 mg/dL [facility] Comment:Desirable Cholestero l: less than 200 mg/dLBorderline High Cholesterol: 200-239 mg/dLHigh Cholesterol: greater than 239 mg/dL LDL Cholesterol Calculated 84 <100 mg/dL [facility] Comment:Desirable LDL: less than 100 mg/dLNear Optimal/Above Optimal LDL: 110- 129 mg/dLBorderline High LDL: 130-159 mg/dLHigh LDL: 160-189 mg/dLVery High LDL: greater than or equal to 190 mg/dL HDL Cholesterol 49 >40 mg/dL [facility] Comment:Desirable HDL: great er than 40 mg/dL Note: This HDL assay may give artificially low results in patients with liver disease. Blood Venous blood specimen / Unknown 03/15/2025 10:43 AM EDT 03/15/2025 1:07 PM EDT [facility] LAB BLOOD ORDERABLES Radha l Result Performing Organization Address [facility]/ZIP Co de Phone Number [facility] [address] [place] [phone] * (ABNORMAL) Comprehensive Metabolic Panel (03/15/2025 10:43 AM EDT) Pathologist [facility] Sodium 139 135 - 145 mmol/L [facility] Potassium 3.7 3.3 - 5.1 mmol/L [facility] Chloride 105 96 - 108 mmol/L [facility] Carbon Dioxide 27 22 - 29 mmol/L [facility] Anion Gap 11(L) 12 - 20 [facility] Urea Nitrogen (BUN) 7(L) 9 - 16 mg/dL [facility] Creatinine, Serum 0.64 0.5 - 1.4 mg/dL [facility] Estimated Glomerular Filt Rate >60 [facility] Comment:Chronic Kidney Disea se: Estimated GFR < 60 mL/min/1.80e2Xpzrph Kidney Disease: Estimated GFR < 15 mL/min/1.73m2 Glucose 109 60 - 115 mg/dL [facility] Calcium 8.8 8.4 - 10.2 mg/dL [facility] Bilirubin, Total 0.4 0.0 - 1.0 mg/dL [facility] Aspartate Amino Transferase 21 5 - 31 U/L [facility] Alanine Aminotransferase 17 0 - 31 U/L [facility] Total Protein 7.6 6.5 - 8.0 g/dL [facility] Albumin Level 4.0 3.5 - 5.0 g/dL [facility] Alkaline Phosphatase 78 39 - 117 U/L [facility] Blood Venous blood specimen / Unknown 03/15/2025 10:43 AM EDT 03/15/2025 1:07 PM EDT Kortney Alan [facility] BLOOD ORDERABLES Radha l Result [facility] [address] [place] [address] [phone] * HPV DNA, HIGH RISK, CERVICAL (09/10/2020 12:02 PM EDT) Pathologist [facility] HPV DNA, HIGH RISK, CERVICAL Not Detected NOT DETECTED [facility] Comment: Not Detected ?? High Risk HPV types (16,18,31,33,35,39,45,51,52, 56,58,59,66,68) were not detected. Other HPV types which cause anogenital lesions may be present. The significance of the other types of HPV in malignant processes has not been established. ?? Methodology: Real Time PCR ? 09/10/2020 12:0 2 PM EDT us Tasha Fairbanks NP HISTORICAL/NON ORDERABLE LABS Fi nal Result [facility] [address] [place] [address], * THINPREP TIS PAP (09/10/2020 12:02 PM EDT) Clinical Information: SEE COMMENT [facility] Comment:None given COMMENT SEE [...] has been evaluated with computer assisted technology. Janitor And Cleaner: SEE COMMENT [facility] Comment: BK,CT(ASCP) CT screening location: [address] Infection [facility] Comment:Trichomonas vaginali s identified. Interpretation/Resu lt: SEE COMMENT [facility] Comment:Negative for intraep ithelial lesion or malignancy. LMP: [facility] Comment:NONE GIVEN Prev. BX: NONE GIVEN [facility] Prev. PAP: [facility] Comment:NONE GIVEN SOURCE: [facility] Comment:None given Statement Of Adequacy: SEE COMMENT [facility] Comment: Satisfactory for evaluation. Endocervical/transformation zone component present. 09/10/2020 12:0 2 PM EDT us Tasha Fairbanks NP LAB PATHOLOGY ORDERABLES Final R esult [facility] [address] [place] [address], from Last 3 Months or Most Recently Relevant to Health Maintenance Insurance [employer] Care Teams Spice Room Worker Relationship Specialty Start Date End Date Kortney Alan CNP [address] [place] [phone] PCP - General Family Medicine 12/08/24
--- OUTSIDE RECORDS SUMMARY | 2025-03-27 07:56 | XMS_ITS | Encounter Summary ---
Author Organization [employer] Address [address] [place] [address] 7 [place] [address] Care Team Providers Care Licensing Officer Name Role Phone Rossana Klein LINE DRIVER Primary Care Provider Kortney Alan BUZZSAW OPERATOR HELPER Primary Care Provider [phone] Reason for Referral * Imaging (Routine) - Closed Specialty Diagnoses / Procedures Referred By Frankie irwin Referred To Contact Radiology Diagnoses Tubo-ovarian abscess Procedures US Pelvis Transvaginal Fern Holly FNP [address] [place] [address] Phone: tel: fax: [facility] [address] [facility] [address], [address] [place] [address] Phone: tel: fax: Referral ID Status Reason Start Date Expiration Date Visits Re quested Visits Authorized [id number] Closed 05/16/2024 05/16/2025 1 1 Encounter Details Date Type Department Care Team (Late st Contact Info) Description 05/16/[address] [facility] [address] [place] [address] Fern Holly FNP [address] [place], [place] [phone] Tubo-ovarian abscess (Primary Dx) Social History Tobacco Use Types Packs/Day Years Used Date Smoking Tobacco: Never Smokeless Tobacco: Never Alcohol Use Standard Drinks/Week Comments Never 0 (1 standard drink = 0.6 oz pur e alcohol) Housing Stability Answer Date Recorded What is your housing situation today? I have alyssia sing 04/14/[address] you li [...] Description 05/04/2025 10:15 AM EDT Office Visit [facility] [address] [place], [place] [phone] Kortney Alan CNP [address] [place], [place] [phone] documented as of this encounter Procedures Procedure Name Priority Date/Time Associated Diagnosis Comments US PELVIS TRANSVAGINAL Routine 06/16/2024 Tubo-ovarian abscess documented in this encounter Results * US Pelvis Transvaginal (06/16/2024) Anatomical Region Laterality Modality Pelvis Ultrasound us Fern [facility] US PROCEDURES Final Result documented in this encounter Visit Diagnoses Diagnosis Tubo-ovarian abscess- Primary Salpingitis and oophoritis not specified as acute, subacute, or chronic documented in this encounter Care Teams Licensing Officer Relationship Specialty Start Date End Date Rossana Klein NP [address] [place], [place] [phone] PCP - General Family Medicine 04/14/24 12/07/24 Kortney Alan CNP [address] [place], [place] [phone] PCP - General Family Medicine 12/08/24 documented as of this encounter
--- OUTSIDE RECORDS SUMMARY | 2025-03-27 07:56 | XMS_ITS | Encounter Summary ---
Author Organization [employer] Address [address] [place] [address] Care Team Providers Care Throw Out Clerk Name Role Phone Rossana Klein EXTRUSION SUPERVISOR Primary Care Provider [phone] Kortney Alan KINDER TEACHER Primary Care Provider [phone] Reason for Visit * Reason Onset Date Comments Imagin 05/11/2024 Encounter Details Date Type Department Care Team ([facility] st Contact Info) Description 05/11/2024 Telephone [facility] MED[facility] [address] [place], [place] [phone] Rossana Klein NP [address] [place] [address] Imagin Social History Tobacco Use Types Packs/Day [...] the past 12 months, has t he [employer], oil or water [employer] threatened to shut off services in your [...] Description 05/04/2025 10:15 AM EDT Office Visit [facility] [address] [place], [place] [phone] Kortney Alan, JAYDE [address] [place] [address] documented as of this encounter Visit Diagnoses Not on filedocumented in this encounter Care Teams Throw Out Clerk Relationship Specialty Start Date End Date Rossana Klein NP [address] [place], [place] [phone] PCP - General Family Medicine 04/14/24 12/07/24 Kortney Alan CNP [address] [place], [place] [phone] PCP - General Family Medicine 12/08/24 documented as of this encounter
--- OUTSIDE RECORDS SUMMARY | 2025-03-27 07:56 | XMS_ITS | Encounter Summary ---
Author Organization [employer] Address [address] [facility] 7t [place] [address] Care Team Providers Care Coremaking Machine Operator Name Role Phone Rossana Klein NP Primary Care Provider [phone] Kortney Alan CNP Primary Care Provider [phone] Reason for Visit * Reason Onset Date Comments Call Back Request 05/09/2024 Encounter Details Date Type Department Care Team ([facility] st Contact Info) Description 05/09/2024 Telephone [facility] [address] [place], [place] [phone] Rossana Klein NP [address] [place], [place] [phone] Call Back Request Social History Tobacco Use [...] t he electric, gas, oil or water Group [employer] threatened to shut off services in your [...] clarify why not. Please contact Evangelina at [phone]. documented in this encounter Plan of Treatment Upcoming Encounters Date Type Department Care Team (Late st Contact Info) Description 05/04/2025 10:15 AM EDT Office Visit [facility] [address] [place] [address] Kortney Alan CNP [address] [place] [address] documented as of this encounter Visit Diagnoses Not on filedocumented in this encounter Care Teams Coremaking Machine Operator Relationship Specialty Start Date End Date Rossana Klein NP [address] [place] [phone] PCP - General Family Medicine 04/14/24 12/07/24 Kortney Alan CNP [address] [place] [phone] PCP - General Family Medicine 12/08/24 documented as of this encounter
--- OUTSIDE RECORDS SUMMARY | 2025-03-27 07:56 | XMS_ITS | Clinical Summary ---
Author Organization [address] Address [address] [place] [phone] Phone Care Team Providers Care Assistant Toddler Teacher Name Role Phone Physician, No Pcp Primary [...] topic Insurance MEDICA[place] - [place] Care Teams Assistant Toddler Teacher Relationship Specialty Start Date End Date Physician, No Pcp PCP - General 10/09/24
--- NOTE | 2025-03-27 08:07 | MHC.OFFVIS ---
Vital Signs 03/27/25 08:08 Height 5 ft 3 in Weight 214 lb BMI 37.9 Intake Visit Reasons: Preop RT cubital/CTR 04/02/25 AR Intake Note: Cassi is a 40 year old female who presents today for a pre operative appointment - she is booked for a Right cubital tunnel and carpal tunnel release on 04/02/[address] Francis Steam Boiler Fireman Required: Yes Steam Boiler Fireman Language: Patient Financial Coordinator Name: Sandra QUINTANILLA LARISA Allergies amoxicillin Allergy (Verified 03/27/25 08:08) Hives HPI HPI Preop RT cubital/CTR 04/02/25 AR: Details: Cassi is a 40 year old female who presents today for a pre operative appointment - she is booked for a Right cubital tunnel and carpal tunnel release on 04/02/[address] Francis [facility] Social History Current occupational status: unemployed Current occupation: rt handed Review of Systems Const All systems reviewed & are unremarkable except as noted in HPI and below Physical Exam Vital Signs: BMI result Body Mass Index 37.9 Extrem Other: Neuro: Diminished sensation in the tips of all digits of bilateral hands in the office today No thenar or intrinsic wasting. Good APB muscle firing and good finger cross. Vascular: Capillary refill brisk. ROM: Patient can make a fist and extend all their digits. Skin: No lacerations or abrasions noted. General: No ecchymosis. No erythema or evidence of infection. Assessment & Plan Assessment & Plan (1) Cubital tunnel syndrome, bilateral: Code(s): G56.23 - Lesion of ulnar nerve, bilateral upper limbs Category: Medical (2) Bilateral carpal tunnel syndrome: Code(s): G56.03 - Carpal tunnel syndrome, bilateral upper limbs Category: Medical Plan 1. Cubital tunnel syndrome, right 2. Carpal tunnel syndrome, right Symptoms intermittent, daily, worse at night I educated the patient about the condition. I discussed both operative and nonoperative treatment options. After lengthy discussion, The patient would like to proceed with surgery. The risks and benefits of operative treatment were discussed with the patient and the patient wishes to proceed with surgery. These risks include, but are not limited to, risk of damage to blood vessels, nerves, tendons, infection, recurrence, incomplete relief of preoperative symptoms, persistent pain, possible need for further surgery, and the risks associated with regional blocks and/or anesthesia. Plan is to take the patient to the operating room at some point in the next few weeks for the following procedures: 1. Cubital tunnel release, right, under general 2. Right carpal tunnel release under general All of the preoperative paperwork including the consent was discussed today. All of the patient's questions were answered in the clinic today. The patient understands that they will be in contact with our surgical rn to discuss scheduling their procedure. Patient denies diabetes, blood thinners, asthma, heart issues, lung issues, kidney issues, or current smoking. 3. Cubital tunnel syndrome, left Carpal tunnel syndrome, left Symptoms constant, daily, worse at night Patient would like to proceed with intervention on the right side 1st Patient was advised that if surgery goes well on the right side, we will pursue operative intervention on the left Patient was amenable to this plan Coding Level of Care Code Est Pt Level 4 (22316) Diagnoses Cubital tunnel syndrome, bilateral G56.23 Bilateral carpal tunnel syndrome G56.03
[2025-03-27 08:08] VITALS: BMI 37.9
== END 2025-03-27 08:29 | disposition home or self-care (01) ==
LOC: HO.HOS 07:53
DX: G56.23 Lesion of ulnar nerve, bilateral upper limbs (principal); G56.03 Carpal tunnel syndrome, bilateral upper limbs
CPT/HCPCS: 99024

== ENCOUNTER → 2025-03-27 07:53 | Outpatient (BNVA) | payer MEDICAID, SELFPAY | DX: G56.03 Carpal tunnel syndrome, bilateral upper limbs (principal); G56.23 Lesion of ulnar nerve, bilateral upper limbs | CPT/HCPCS: 99212 ==

== ENCOUNTER 2025-04-02 06:49 | Day surgery (SDC) | payer MEDICAID, SELFPAY ==
[2025-03-29 11:31] VITALS: BMI 37.9
[2025-03-29 14:18] VITALS: BMI 38.1
--- NOTE | 2025-03-30 11:47 | HO.ANESPROP2 ---
Documented by User: Karla Galvin NP 03/30/25 11:48 HPI - Anesthesia Eval Consult details Narrative: 40yo F for Right Cubital Tunnel Release, Carpal Tunnel Release PMFSH Active Problems Active Problems: All Active Problems Cubital tunnel syndrome, bilateral (Acute) Bilateral carpal tunnel syndrome (Acute) Past Medical History Medical History Marijuana use History of ganglion cyst Obesity (BMI 30-39.9) Family History Family History (Updated 03/29/25 @ 14:28 by Janelle Christie RN) Son Adverse effect of anesthesia Surgical History Surgical History Hx of tubal ligation (~2010) Social History Social History (Updated 03/29/25 @ 14:29 by Janelle Christie RN) Household Members: Children Household Members Other:: children 18+14 yrs old Housing: Apartment Are you a primary skin care consultant to a significant other at home: Yes (children, sister to help post-op) Do you presently have visiting nurse or other home services: No Patient Tobacco Use Status: Never used Tobacco Use of substances other than those prescribed or required for medical reasons: Yes Substance Use Type: Marijuana Substance Use Frequency: Daily Have you been hit, kicked, punched, or otherwise hurt by someone within the past year? If so, by whom?: No Advance Directives: No Advance Directives Information Provided: Yes Advance Directives on File: No Patient : No FDLMP: 03/29/2025 : No Poor oral hygiene: No Current occupational status: unemployed Current occupation: rt handed Meds Allergies Allergy/AdvReac Type Severity Reaction Status Date / Time amoxicillin Allergy Intermediate Hives Verified 04/02/25 08:21 aspirin Allergy Intermediate Rash Verified 04/02/25 08:21 Home Medications ?Medication ?Instructions ?Recorded ?Confirmed ?Last Taken ?Type No Known Home Meds 02/19/25 03/29/25 Unknown History Exam Height,Weight and Vital Signs: Height 5 ft 3 in Weight 97.522 kg Assessment and Plan Assessment Anesthesia Assessment: Chart Reviewed Documented by User: Cyndi Hickman MD 04/02/25 09:30 [facility], [facility] Past Medical History Medical History Marijuana use History of ganglion cyst Obesity (BMI 30-39.9) Family History Family History (Updated 03/29/25 @ 14:28 by Janelle Christie RN) Son Adverse effect of anesthesia Family history of problems with anesthesia: No Surgical History Surgical History Hx of tubal ligation (~2010) History of Problems with Anesthesia: No Social History Social History (Updated 03/29/25 @ 14:29 by Janelle Christie RN) Household Members: Children Household Members Other:: children 18+14 yrs old Housing: Apartment Are you a primary skin care consultant to a significant other at home: Yes (children, sister to help post-op) Do you presently have visiting nurse or other home services: No Patient Tobacco Use Status: Never used Tobacco Use of substances other than those prescribed or required for medical reasons: Yes Substance Use Type: Marijuana Substance Use Frequency: Daily Have you been hit, kicked, punched, or otherwise hurt by someone within the past year? If so, by whom?: No Advance Directives: No Advance Directives Information Provided: Yes Advance Directives on File: No Patient : No FDLMP: 03/29/2025 : No Poor oral hygiene: No Current occupational status: unemployed Current occupation: rt handed Meds Allergies Allergy/AdvReac Type Severity Reaction Status Date / Time amoxicillin Allergy Intermediate Hives Verified 04/02/25 08:21 aspirin Allergy Intermediate Rash Verified 04/02/25 08:21 Home Medications ?Medication ?Instructions ?Recorded ?Confirmed ?Last Taken ?Type No Known Home Meds 02/19/25 03/29/25 Unknown History Exam Airway Mallampati Class: II (missing molars) TM Dist: >3cm Neck ROM: Full Heart: rrr Lungs: cta Assessment and Plan Assessment Anesthesia Assessment: Anesthesia Plan Discussed Final Anesthetic Review Family History of Problems with Anesthesia: No History of Problems with Anesthesia: No NPO: Yes ASA Class: II Final Preanesthetic Review: No Changes in Pt Med Stat, Meds/Allgs Chart Reviewed and Consent Obtained/Reviewed Patient Risk: Low Procedure Risk: Low Anesthetic Plan Anesthetic Plan: GA Disposition: Standard PACU
--- OUTSIDE RECORDS SUMMARY | 2025-03-30 11:58 | XMS_ITS | Encounter Summary ---
Author Organization [employer] Address [address] [facility] 7t [place] [address] Care Team Providers Care Steam Heating Installer Name Role Phone Rossana Klein FEATHER SAWYER Primary Care Provider [phone] Kortney Alan AMERICANIZATION TEACHER Primary Care Provider [phone] Reason for Visit * Reason Onset Date Comments Imagin 05/11/2024 Encounter Details Date Type Department Care Team ([facility] st Contact Info) Description 05/11/[address] [facility] MEDICINE [address] [place], [place] [phone] Rossana Klein NP [address] [place] [address] Imagin Social History Tobacco Use Types Packs/Day [...] the past 12 months, has t he [employer], [employer], oil or water [employer] threatened to shut off services in your [...] 10:15 AM EDT Office Visit [facility] MEDICINE [address] [place], [place] [phone] Kortney Alan, JAYDE [address] [place] [address] 06/14/2025 11:15 AM EDT Office Visit [facility] OPTOMETRY [address] [place], [place] [phone] Herbiejg Kirsten, OD [address] [place], [place] [phone] documented as of this encounter Visit Diagnoses Not on filedocumented in this encounter Care Teams Steam Heating Installer Relationship Specialty Start Date End Date Rossana Klein NP [address] [place], [place] [phone] PCP - General Family Medicine 04/14/24 12/07/24 Kortney Alan CNP [address] [place], [place] [phone] PCP - General Family Medicine 12/08/24 documented as of this encounter
--- OUTSIDE RECORDS SUMMARY | 2025-03-30 11:58 | XMS_ITS | Encounter Summary ---
Author Organization [employer] Address [address] [facility] 7t [place] [address] Care Team Providers Care Bilingual Sales Consultant Name Role Phone Rossana Klein NP Primary Care Provider [phone] Kortney Alan CNP Primary Care Provider [phone] Reason for Visit * Reason Onset Date Comments Call Back Request 05/09/2024 Encounter Details Date Type Department Care Team ([facility] st Contact Info) Description 05/09/2024 Telephone [facility] MEDICINE [address] [place], [place] [phone] Rossana Klein NP [address] [place], [place] [phone] Call Back Request Social History Tobacco Use [...] t he electric, gas, oil or water [employer] threatened to shut off services in your [...] clarify why not. Please contact Evangelina at [phone]. documented in this encounter Plan of Treatment Upcoming Encounters Date Type Department Care Team (Late st Contact Info) Description 05/04/2025 10:15 AM EDT Office Visit [facility] MEDICINE [address] [place] [address] Kortney Alan CNP [address] [place] [address] 06/14/2025 11:15 AM EDT Office Visit [facility] OPTOMETRY [address] [place], [place] [phone] Kirsten Morfin, OD [address] [place] [address] documented as of this encounter Visit Diagnoses Not on filedocumented in this encounter Care Teams Bilingual Sales Consultant Relationship Specialty Start Date End Date Rossana Klein NP [address] [place] [phone] PCP - General Family Medicine 04/14/24 12/07/24 Kortney Alan CNP [address] [place] [address] [phone] PCP - General Family Medicine 12/08/24 documented as of this encounter
--- OUTSIDE RECORDS SUMMARY | 2025-03-30 11:58 | XMS_ITS | Clinical Summary ---
Author Organization [address] Address [address] [place] [phone] Phone Care Team Providers Care Sugar Refiner Name Role Phone Physician, No Pcp Primary [...] topic Insurance MEDICAID - [place] Care Teams Sugar Refiner Relationship Specialty Start Date End Date Physician, No Pcp PCP - General 10/09/24
--- OUTSIDE RECORDS SUMMARY | 2025-03-30 11:58 | XMS_ITS | Clinical Summary ---
Author Organization [employer] Address [address] [facility] 7t [place] [address] Care Team Providers Care Industrial Machine System Technician Name Role Phone Krotney Alan CNP Primary Care Provider [phone] Allergies Active Allergy Reactions Criticality Noted Date [...] Type Department Care Team Description 03/21/2025 Telephone [facility] [address] [place] [address] Arlet Wagner [place] Appointment Request 03/20/2025 Telephone [facility] [address] [place] [address] Kortney Alan CNP Results 03/07/2025 2:45 PM EDT Office Visit [facility] [address] [place] [address] Kortney Alan CNP Encounter for screening examination for sexually transmitted disease (Primary Dx); Healthcare maintenance; Cyst of uterus 03/07/2025 Travel 02/28/2025 Patient Outreach [address] [address] Kortney Alan CNP Pre-visit Planning (SDOH screening negative and Tobacco screening negative) 02/28/[address] [address] Kortney Alan CNP Chart Prep 02/12/[address] [address] Dipti Smith CNM 02/02/2025 Population Health Risk Score Community [facility] () [address] [phone] Provider, Population Health Generic 01/31/2025 Patient Outreach [address] [address] Kortney Alan CNP Care Coordination (CHW outreach SDOH pest control - referral completed ) 01/31/2025 Patient Outreach [address] [address] Kortney Alan CNP Pre-visit Planning (SDOH Screening positive and Tobacco screening negative) 01/18/[address] [address] Kortney Alan CNP Chart Prep 01/04/2025 Travel [...] Description 05/04/2025 10:15 AM EDT Office Visit [facility] [address] [place] [address] Waqas Nolanevan, DIRECTOR OF PARTNER MARKETING [address] [place], [place] [phone] 06/14/2025 11:15 AM EDT Office Visit [facility] OPTOMETRY [address] [place] [address] Kirsten Morfin, OD [address] [place], [place] [phone] Health Maintenance Due Date Last Done Comments [...] Blood Count 9.4 4.8 - 10.8 X10*3/uL [facility] Red Blood Count 4.66 4.20 - 5.50 X10*6/uL [facility] Hemoglobin 12.4 12.0 - 16.0 g/dl [facility] Hematocrit 39.0 37.0 - 47.0 % [facility] Mean Corpuscular Volume 83.7 80.0 - 98.0 fL [facility] Mean Corpuscular Hemoglobin 26.6(L) 27.0 - 33.0 pg [facility] Mean Corpuscular HGB Conc 31.8 31.0 - 35.0 g/dl [facility] Red Cell Distribution Width 17.2(H) 11.0 - 16.0 % [facility] Platelet Count 262 160 - 400 X10*3/uL [facility] Mean Platelet Volume 11.5 9.4 - 12.3 fL [facility] Neutrophils Percent Auto 69.1 45 - 73 % [facility] Imm Gran Pct Auto 0.4 0.0 - 0.4 % [facility] Lymphocytes Percent Auto 20.9 20 - 40 % [facility] Monocytes Percent Auto 7.9 2 - 11 % [facility] Eosinophils Percent Auto 1.5 0 - 4 % [facility] Basophils Percent Auto 0.2 0 - 2 % [facility] NRBC Pct Auto 0.0 0.0 - 0.2 /100WBC [facility] Neutrophils Absolute Auto 6.5 2.0 - 8.3 x10*3/uL [facility] Imm Gran Abs Auto 0.04(H) 0.00 - 0.03 X10*3/uL [facility] Lymphocytes Absolute Auto 2.0 1.2 - 4.9 X10*3/uL [facility] Monocytes Absolute Auto 0.7 0.1 - 1.2 X10*3/uL [facility] Eosinophils Absolute Auto 0.1 0.0 - 0.4 X10*3/uL [facility] Basophils Absolute Auto 0.0 0.0 - 0.2 X10*3/uL [facility] NRBC Abs Auto 0.000 0.0 - 0.012 X10*3/uL [facility] Blood Venous blood specimen / Unknown 03/15/2025 10:43 AM EDT 03/15/2025 1:07 PM EDT [facility] BLOOD ORDERABLES Radha l Result Performing Organization Address [facility] Co de Phone Number [facility] [address] [place] [phone] * Hepatitis C Antibody with Reflex to HCV, RNA, Quantitative, Real-Time PCR (03/15/2025 10:43 AM EDT) [facility] Hepatitis C Antibody Nonreactive Nonreactive [facility] Comment:Antibodies to HCV no t detected; does not exclude early acuteHCV infection. Blood Venous blood specimen / Unknown 03/15/2025 10:43 AM EDT 03/15/2025 1:07 PM EDT [facility] BLOOD ORDERABLES Radha l Result Performing Organization Address [facility] Co de Phone Number [facility] [address] [place] [phone] * Chlamydia/N. Gonorrhoeae RNA, TMA, Urogenitial (03/15/2025 10:43 AM EDT) [facility] CT PCR NOT DETECTED Not Detect. [facility] Comment:A not detected test result [...] psychologicalconsequences. NG PCR NOT DETECTED Not Detect. [facility] Comment:A not detected test result [...] AM EDT 03/15/2025 1:02 PM EDT Narrative [facility] - 03/15/2025 5:17 PM EDT Urine [facility] MICROBIOLOGY - GENERA L ORDERABLES Final Result [facility] [address] [place] [address] [phone] * RPR (Monitor) with Reflex to??Titer (03/15/2025 10:43 AM EDT) RPR (Monitor) w/Refl Titer NON-REACTI VE NON-REACT TABITHA [facility] Comment:THIS TEST WAS PERFOR MED AT:[employer] [place] [phone] BANG MD Rapid Plasma Reagin Ab Titer TNP [facility] Blood Venous blood specimen / Unknown 03/15/2025 10:43 AM EDT 03/15/2025 1:07 PM EDT [facility] BLOOD ORDERABLES Radha l Result Performing Organization Address [facility]/ZIP Co de Phone Number [facility] [address] [place] [phone] [phone] * HIV-1/2 Antigen and Antibodies, Fourth Generation, with Reflexes (03/15/2025 10:43 AM EDT) HIV AB/AG Nonreactive Nonreactive [facility] Comment:HIV-1 p24 Ag and/or HIV-1/HIV-2 Ab not detected.A test result that is nonreactive does not exclude thepossibility of exposure to or infection with HIV-1 and/orHIV-2. Nonreactive results in this assay for individualswith prior exposure to HIV-1 and/or HIV-2 may be due toantigen and antibody levels that are below the limit ofdetection of this assay.The [employer] HIV Ag/Ab Combo assay result andsupplemental assay results should be interpreted inconjunction with the patient's clinical presentation,history and other laboratory results. If the results areinconsistent with clinical evidence, additional testing issuggested to confirm the result. Blood Venous blood specimen / Unknown 03/15/2025 10:43 AM EDT 03/15/2025 1:07 PM EDT [facility] BLOOD ORDERABLES Radha l Result Performing Organization Address [facility]/ZIP Co de Phone Number [facility] [address] [place] [address] [phone] * (ABNORMAL) Hemoglobin A1c (03/15/2025 10:43 AM EDT) Hemoglobin A1c 6.2(H) <6.0 % [facility] Comment:Hemoglobin A1C Refer ence Range Adults: 4.8 - 6.0 % Non diabetic: < 6.0 % Goal: < 7.0 %Additional Action Suggested: > 8.0 %Note: Hemoglobin A1c results are invalid for patients with abnormal amounts of HbF. Blood transfusions may impact the HbA1c concentration in the patient sample. Estimated Average Glucose 131 mg/dL [facility] Comment:eAG = Estimated ave rage glucose which is %A1C expressed asaverage glucose, using the formula of the C5Y-XckfekuYybrsfw Glucose study (ADAG), Diabetes Care, Vol.31,#8,Jun. 2007 Blood Venous blood specimen / Unknown 03/15/2025 10:43 AM EDT 03/15/2025 1:07 PM EDT [facility] BLOOD ORDERABLES Radha l Result [facility] [address] [place] [phone] [phone] * Lipid Panel, Standard (03/15/2025 10:43 AM EDT) Triglycerides 95 <150 mg/dL [facility] Comment:Desirable Triglyceri de: less than 150 mg/dLBorderline High Triglyceride 150-199 mg/dLHigh Triglyceride: 200-499 mg/dLVery High Triglyceride: greater than or equal to 5OO mg/dL Cholesterol 152 <200 mg/dL [facility] Comment:Desirable Cholestero l: less than 200 mg/dLBorderline High Cholesterol: 200-239 mg/dLHigh Cholesterol: greater than 239 mg/dL LDL Cholesterol Calculated 84 <100 mg/dL [facility] Comment:Desirable LDL: less than 100 mg/dLNear Optimal/Above Optimal LDL: 110- 129 mg/dLBorderline High LDL: 130-159 mg/dLHigh LDL: 160-189 mg/dLVery High LDL: greater than or equal to 190 mg/dL HDL Cholesterol 49 >40 mg/dL [facility] Comment:Desirable HDL: great er than 40 mg/dL Note: This HDL assay may give artificially low results in patients with liver disease. Blood Venous blood specimen / Unknown 03/15/2025 10:43 AM EDT 03/15/2025 1:07 PM EDT [facility] BLOOD ORDERABLES Radha l Result [facility] [address] [place] [address] [phone] * (ABNORMAL) Comprehensive Metabolic Panel (03/15/2025 10:43 AM EDT) Sodium 139 135 - 145 mmol/L [facility] Potassium 3.7 3.3 - 5.1 mmol/L [facility] Chloride 105 96 - 108 mmol/L [facility] Carbon Dioxide 27 22 - 29 mmol/L [facility] Anion Gap 11(L) 12 - 20 [facility] Urea Nitrogen (BUN) 7(L) 9 - 16 mg/dL [facility] Creatinine, Serum 0.64 0.5 - 1.4 mg/dL [facility] Estimated Glomerular Filt Rate >60 [facility] Comment:Chronic Kidney Disea se: Estimated GFR < 60 mL/min/1.90o7Mzxxep Kidney Disease: Estimated GFR < 15 mL/min/1.73m2 Glucose 109 60 - 115 mg/dL [facility] Calcium 8.8 8.4 - 10.2 mg/dL [facility] Bilirubin, Total 0.4 0.0 - 1.0 mg/dL [facility] Aspartate Amino Transferase 21 5 - 31 U/L [facility] Alanine Aminotransferase 17 0 - 31 U/L [facility] Total Protein 7.6 6.5 - 8.0 g/dL [facility] Albumin Level 4.0 3.5 - 5.0 g/dL [facility] Alkaline Phosphatase 78 39 - 117 U/L [facility] Blood Venous blood specimen / Unknown 03/15/2025 10:43 AM EDT 03/15/2025 1:07 PM EDT [facility] BLOOD ORDERABLES Radha l Result [facility] [address] [place] [address] [phone] * HPV DNA, HIGH RISK, CERVICAL (09/10/2020 12:02 PM EDT) HPV DNA, HIGH RISK, CERVICAL Not Detected NOT DETECTED [facility] Comment: Not Detected ?? [...] LABS Fi nal Result Performing Organization Address [facility] de Phone Number [facility] [address] [place] [phone] * THINPREP TIS PAP (09/10/2020 12:02 PM EDT) Clinical Information: SEE COMMENT [facility] [...] has been evaluated with computer assisted technology. Landscape Horticulture Instructor: SEE COMMENT [facility] Comment: BK,CT(ASCP) CT screening location: [address] Infection SEE COMMENT [facility] [...] R esult [facility] [address] from Last 3 Months or Most Recently Relevant to Health Maintenance Insurance [address] [place], [place] [address] C[employer] Care Teams Industrial Machine System Technician Relationship Specialty Start Date End Date Kortney Alan CNP [address] [place] [phone] PCP - General Family Medicine 12/08/24
--- OUTSIDE RECORDS SUMMARY | 2025-03-30 11:58 | XMS_ITS | Encounter Summary ---
Author Organization [employer] Address [address] [place] [address] 7 [place] [address] Care Team Providers Care Occupational Health And Safety Manager Name Role Phone Rossana Klein PIZZA HUT ASSISTANT Primary Care Provider [phone] Kortney Alan LABORATORY HELPER Primary Care Provider [phone] Reason for Referral * Imaging (Routine) - Closed Specialty Diagnoses / Procedures Referred By Frankie irwin Referred To Contact Radiology Diagnoses Tubo-ovarian abscess Procedures US Pelvis Transvaginal Fern Holly FNP [address] [place] [address] Phone: tel: fax: [facility] [address] [facility], [address] [place] [address] Phone: tel: fax: Referral ID Status Reason Start Date Expiration Date Visits Re quested Visits Authorized [id number] Closed 05/16/2024 05/16/2025 1 1 Encounter Details Date Type Department Care Team (Late st Contact Info) Description 05/16/2024 Orders Only [facility] [address] [place] [address] Fern Holly FNP [address] [place], [place] [phone] Tubo-ovarian abscess (Primary Dx) Social History Tobacco [...] Description 05/04/2025 10:15 AM EDT Office Visit [facility] MEDICINE [address] [place] [address] Kortney Alan CNP [address] [place] [address] 06/14/2025 11:15 AM EDT Office Visit [facility] OPTOMETRY [address] [place] [address] Kirsten Morfin, OD [address] [place] [address] documented as of this encounter Procedures Procedure Name Priority Date/Time Associated Diagnosis Comments US PELVIS TRANSVAGINAL Routine 06/16/2024 Tubo-ovarian abscess documented in this encounter Results * US Pelvis Transvaginal (06/16/2024) Anatomical Region Laterality Modality Pelvis Ultrasound us Fern Elayne WINDOWS DEPLOYMENT TECHNICIAN IMG US PROCEDURES Final Result documented in this encounter Visit Diagnoses Diagnosis Tubo-ovarian abscess- Primary Salpingitis and oophoritis not specified as acute, subacute, or chronic documented in this encounter Care Teams Occupational Health And Safety Manager Relationship Specialty Start Date End Date Rossana Klein NP [address] [place], [place] [phone] PCP - General Family Medicine 04/14/24 12/07/24 Kortney Alan CNP [address] [place], [place] [phone] PCP - General Family Medicine 12/08/24 documented as of this encounter
[2025-04-02] VITALS (7 sets, daily range): BP systolic 116–142; BP diastolic 35–79; PULSE 89–108; RESP 18–25; TEMP 36.3–36.9; O2SAT 95–98; BMI 43.0
[2025-04-02] MEDS: Lactated Ringers 1,000 ML 100 ML IVCONT (08:09)
--- NOTE | 2025-04-02 09:12 | MHC.SHP ---
Pre-Procedural Eval Section A - 24 Hr Update-Section A only Date of Service: 04/02/25 The patient is an INPATIENT: No Changes since office visit: No Cold of Flu in the past 2 weeks, No New Medical Problems, No Changes in Medication and No Patient answered all questions The patient has been examined within 24 hours of the surgical procedure. The History & Physical has been completed within 30 days and I have reviewed it.: Yes Section B - Complete if H&P > 30 days Chief Complaint: lesion of ulnar nerve,carpal tunnel release Allergies: Allergies Allergy/AdvReac Type Severity Reaction Status Date / Time amoxicillin Allergy Intermediate Hives Verified 04/02/25 08:21 aspirin Allergy Intermediate Rash Verified 04/02/25 08:21 Plan I have reviewed the history and physical and performed a pertinent physical examination on my patient. No changes have occurred unless specified. Time Spent With Patient Time: Total time managing care of this patient today ____ minutes.
--- NOTE | 2025-04-02 09:15 | P.OP_ITS ---
Operative Note Operative Note Date of Service: 04/02/25 Narrative: Operative Note Narrative: Preop diagnosis: 1. Right Cubital tunnel syndrome 2. Right carpal tunnel syndrome Postop diagnosis: Same Procedure: 1. Right Cubital Tunnel Release 2. Right carpal tunnel release Surgeon: Nakia Francis MD Garment Supervisor: None Anesthesia: General Anesthesia Findings: Thickening and fibrosis about the ulnar nerve at the cubital tunnel Implants: none Tourniquet time: 37 minutes EBL: 5.0 ml Specimen: none Drains: None Complications: None Disposition: Brought to the recovery room in stable condition Plan: Follow-up in 10-14 days for wound check, and suture removal Indications: The patient is 40 years old with right carpal tunnel and right cubital tunnel syndrome . The risks and benefits of operative treatment, including but not limited to risk of damage to blood vessels, nerves, tendons, infection, recurrence, persistent pain or numbness, incomplete resolution of preoperative symptoms, or need for further surgery were discussed with the patient and they wished to proceed with surgery. Procedure: Once consent was obtained patient was brought back to the operating suite and placed in the operating table in a supine position. Perioperative antibiotics and anesthesia was administered by the anesthesia team. The limb was prepped and draped in a standard surgical fashion, and a sterile tourniquet applied to the proximal aspect of the right upper extremity. The limb was elevated exsanguinated with Esmarch bandage and the tourniquet inflated to 250 mm of mercury for a total tourniquet time of 37 minutes. Once assured that we had a good block, a 2.0 cm longitudinal incision was made centered over the right carpal tunnel. The incision was made through the skin to the subcutaneous tissues using a #15 blade. Dissection was made down to the level of the transverse carpal ligament with care being taken to protect the palmar cutaneous nerve. Once the transverse carpal ligament was clearly visualized, a longitudinal incision was made in the transverse carpal ligament 1st using a #15 blade, then using tenotomy scissors under direct visualization. Care was taken to look for and protect the motor branch of the median nerve when seen in this area. Once satisfied with our carpal tunnel release the wound was irrigated with normal saline. A 6 cm gently curved but longitudinally oriented incision was made centered over the cubital tunnel of the right upper extremity. Incision was made through the skin to the subcutaneous tissues using a # 15 Blade. I then dissected down to the level of the medial epicondyle and the cubital tunnel using tenotomy scissors. Care was taken to protect the medial antebrachial cutaneous nerve. The ulnar nerve was identified just posterior to the medial intermuscular septu m. The ulnar nerve was released in a proximal to distal direction using tenotomy in iris scissors while directly visualizing and protecting the ulnar nerve. Thickening and fibrosis was appreciated about the ulnar nerve as it passed through the cubital tunnel. The ulnar nerve was assessed as I passed the elbow through full flexion and extension and was found to remain stable within its groove. At this point the tourniquet was deflated and hemostasis obtained with a brief period of local pressure and bipolar electrocautery. The wound was copiously irrigated with normal saline. The subcutaneous layer was closed with 4-0 Vicryl suture, and the skin edges were reapproximated with 5-0 nylon suture. The wound was infiltrated with some 1% lidocaine with epinephrine for postop pain control and sterile dressings were applied. The patient appears to have tolerated the procedure well and with no complications. All digits were well vascularized at the conclusion of the case.
[2025-04-02] MEDS: ceFAZolin Sodium/Dextrose,Iso 2 GM/50 ML PIGGYBACK IV (10:45)
[2025-04-02] MEDS: ondansetron HCL 4 MG/2 ML VIAL IVPUSH (12:40)
== END 2025-04-02 13:45 | disposition home or self-care (01) ==
PROVIDERS: Visit Provider Orthopaedic Surgery
PROC: (CPT 64718; principal; 2025-04-02 09:50)
PROC: (CPT 64721; 2025-04-02 09:50)
DX: G56.01 Carpal tunnel syndrome, right upper limb (principal); G56.21 Lesion of ulnar nerve, right upper limb; E66.9 Obesity, unspecified; Z68.37 Body mass index [BMI] 37.0-37.9, adult; Z88.1 Allergy status to other antibiotic agents; Z88.6 Allergy status to analgesic agent; Z91.013 Allergy to seafood; Z98.51 Tubal ligation status; Z56.0 Unemployment, unspecified
CPT/HCPCS: 64721; 64718; J0131; J0690; J2004; J2250; J2371; J2405; J2795; J3010

== ENCOUNTER → 2025-04-02 06:49 | Outpatient (BNV) | payer MEDICAID, SELFPAY | PROVIDERS: Visit Provider Orthopaedic Surgery | DX: G56.21 Lesion of ulnar nerve, right upper limb (principal); G56.01 Carpal tunnel syndrome, right upper limb | CPT/HCPCS: 64718; 64721 ==

== ENCOUNTER 2025-04-17 08:11 | Outpatient (AMB) | payer MEDICAID, SELFPAY ==
--- OUTSIDE RECORDS SUMMARY | 2025-04-17 08:15 | XMS_ITS | Clinical Summary ---
Author Organization [employer] Address [address] [facility] 7t [place] [address] Care Team Providers Care Ordnance Engineer Name Role Phone Kortney Alan CNP Primary Care Provider [phone] Allergies Active Allergy Reactions Criticality Noted Date [...] Type Department Care Team Description 03/21/2025 Telephone [facility] MEDICINE [address] [place] [address] Arlet Wagner [place] Appointment Request 03/20/2025 Telephone [facility] MEDICINE [address] [place] [address] Kortney Alan CNP Results 03/07/2025 2:45 PM EDT Office Visit [facility] MEDICINE [address] [place] [address] Kortney Alan CNP Encounter for screening examination for sexually transmitted disease (Primary Dx); Healthcare maintenance; Cyst of uterus 03/07/2025 Travel 02/28/2025 Patient Outreach [address] [address] Kortney Alan CNP Pre-visit Planning (SDOH screening negative and Tobacco screening negative) 02/28/[address] [address] Kortney Alan CNP Chart Prep 02/12/[address] [address] Dipti Smith CNM 02/02/2025 Population Health Risk Score Community Care [facility] () [address] [phone] Provider, Population Health Generic 01/31/2025 Patient Outreach [address] [address] Kortney Alan CNP Care Coordination (CH[facility] outreach SDOH pest control - referral completed ) 01/31/2025 Patient Outreach [address] [address] Kortney Alan CNP Pre-visit Planning (SDOH Screening positive and Tobacco screening negative) 01/18/[address] [address] Kortney Alan CNP Chart Prep from Last 3 Months Immunizations Immunization Administration Dates Next Due Influenza injectable quadriv [...] Q2 Not on file 01/31/2025 Comments Unknown Intention Date Recorded No desire to become (finding) 0 03/07/2025 Sex and Gender Information Value Date Recorded [...] Description 05/04/2025 10:15 AM EDT Office Visit [facility] MEDICINE [address] [place] [address] Kortney Alan FELTING MACHINE OPERATOR HELPER [address] [place] [address] 06/14/2025 11:15 AM EDT Office Visit [facility] OPTOMETRY [address] [place] [address] HerbiejgKirsten, OD [address] [place] [address] Health Maintenance Due Date Last Done Comments Disability Screening 1986 Alcohol/Substance Use Screening 1998 Hepatitis B Vaccines [...] Blood Count 9.4 4.8 - 10.8 X10*3/uL [facility] Red Blood Count 4.66 4.20 - 5.50 X10*6/uL [facility] Hemoglobin 12.4 12.0 - 16.0 g/dl [facility] Hematocrit 39.0 37.0 - 47.0 % [facility] Mean Corpuscular Volume 83.7 80.0 - 98.0 fL [facility] Mean Corpuscular Hemoglobin 26.6(L) 27.0 - 33.0 pg [facility] Mean Corpuscular HGB Conc 31.8 31.0 - 35.0 g/dl [facility] Red Cell Distribution Width 17.2(H) 11.0 - 16.0 % [facility] Platelet Count 262 160 - 400 X10*3/uL [facility] Mean Platelet Volume 11.5 9.4 - 12.3 fL [facility] Neutrophils Percent Auto 69.1 45 - 73 % [facility] Imm Gran Pct Auto 0.4 0.0 - 0.4 % [facility] Lymphocytes Percent Auto 20.9 20 - 40 % [facility] Monocytes Percent Auto 7.9 2 - 11 % [facility] Eosinophils Percent Auto 1.5 0 - 4 % [facility] Basophils Percent Auto 0.2 0 - 2 % [facility] NRBC Pct Auto 0.0 0.0 - 0.2 /100WBC [facility] Neutrophils Absolute Auto 6.5 2.0 - 8.3 x10*3/uL [facility] Imm Gran Abs Auto 0.04(H) 0.00 - 0.03 X10*3/uL [facility] Lymphocytes Absolute Auto 2.0 1.2 - 4.9 X10*3/uL [facility] Monocytes Absolute Auto 0.7 0.1 - 1.2 X10*3/uL [facility] Eosinophils Absolute Auto 0.1 0.0 - 0.4 X10*3/uL [facility] Basophils Absolute Auto 0.0 0.0 - 0.2 X10*3/uL [facility] NRBC Abs Auto 0.000 0.0 - 0.012 X10*3/uL [facility] Blood Venous blood specimen / Unknown 03/15/2025 10:43 AM EDT 03/15/2025 1:07 PM EDT [facility] LAB BLOOD ORDERABLES Radha l Result Performing Organization Address [facility] de Phone Number [facility] [address] [place] [phone] * Hepatitis C Antibody with Reflex to HCV, RNA, Quantitative, Real-Time PCR (03/15/2025 10:43 AM EDT) [facility] [address] Hepatitis C Antibody Nonreactive Nonreactive [facility] Comment:Antibodies to HCV no t detected; does not exclude early acuteHCV infection. Blood Venous blood specimen / Unknown 03/15/2025 10:43 AM EDT 03/15/2025 1:07 PM EDT [facility] LAB BLOOD ORDERABLES Radha l Result Performing Organization Address [facility] Co de Phone Number [facility] [address] [place] [address] [phone] * Chlamydia/N. Gonorrhoeae RNA, TMA, Urogenitial (03/15/2025 10:43 AM EDT) Pathologist [facility] CT PCR NOT DETECTED Not Detect. [facility] Comment:A not detected test result does [...] psychologicalconsequences. NG PCR NOT DETECTED Not Detect. [facility] Comment:A not detected test result does [...] AM EDT 03/15/2025 1:02 PM EDT Narrative [facility] - 03/15/2025 5:17 PM EDT Urine [facility] LAB MICROBIOLOGY - GENERA L ORDERABLES Final Result [facility] [address] [place] [phone] * RPR (Monitor) with Reflex to??Titer (03/15/2025 10:43 AM EDT) RPR (Monitor) w/Refl Titer NON-REACTI VE NON-REACT TABITHA [facility] Comment:THIS TEST WAS PERFOR MED AT:[employer] [place] [phone] BANG MD Rapid Plasma Reagin Ab Titer TNP [facility] Blood Venous blood specimen / Unknown 03/15/2025 10:43 AM EDT 03/15/2025 1:07 PM EDT [facility] LAB BLOOD ORDERABLES Radha l Result Performing Organization Address City/[facility]/ZIP Co de Phone Number [facility] [address] [place] [address] [phone] * HIV-1/2 Antigen and Antibodies, Fourth Generation, with Reflexes (03/15/2025 10:43 AM EDT) [facility] [address] HIV AB/AG Nonreactive Nonreactive [facility] Comment:HIV-1 p24 Ag and/or HIV-1/HIV-2 Ab not detected.A test result that is nonreactive does not exclude thepossibility of exposure to or infection with HIV-1 and/orHIV-2. Nonreactive results in this assay for individualswith prior exposure to HIV-1 and/or HIV-2 may be due toantigen and antibody levels that are below the limit ofdetection of this assay.The [employer] HIV Ag/Ab Combo assay result andsupplemental assay results should be interpreted inconjunction with the patient's clinical presentation,history and other laboratory results. If the results areinconsistent with clinical evidence, additional testing issuggested to confirm the result. Blood Venous blood specimen / Unknown 03/15/2025 10:43 AM EDT 03/15/2025 1:07 PM EDT [facility] LAB BLOOD ORDERABLES Radha l Result Performing Organization Address City/[facility]/ZIP Co de Phone Number [facility] [address] [place] [address] [phone] * (ABNORMAL) Hemoglobin A1c (03/15/2025 10:43 AM EDT) [facility] [address] Hemoglobin A1c 6.2(H) <6.0 % [facility] Comment:Hemoglobin A1C Refer ence Range Adults: 4.8 - 6.0 % Non diabetic: < 6.0 % Goal: < 7.0 %Additional Action Suggested: > 8.0 %Note: Hemoglobin A1c results are invalid for patients with abnormal amounts of HbF. Blood transfusions may impact the HbA1c concentration in the patient sample. Estimated Average Glucose 131 mg/dL [facility] Comment:eAG = Estimated ave rage glucose which is %A1C expressed asaverage glucose, using the formula of the B4X-YrilszxBdhxnib Glucose study (ADAG), Diabetes Care, Vol.31,#8,Jun. 2007 Blood Venous blood specimen / Unknown 03/15/2025 10:43 AM EDT 03/15/2025 1:07 PM EDT [facility] LAB BLOOD ORDERABLES Radha l Result [facility] [address] [place] [phone] * Lipid Panel, Standard (03/15/2025 10:43 AM EDT) Triglycerides 95 <150 mg/dL [facility] Comment:Desirable Triglyceri de: less than 150 mg/dLBorderline High Triglyceride 150-199 mg/dLHigh Triglyceride: 200-499 mg/dLVery High Triglyceride: greater than or equal to 5OO mg/dL Cholesterol 152 <200 mg/dL [facility] Comment:Desirable Cholestero l: less than 200 mg/dLBorderline High Cholesterol: 200-239 mg/dLHigh Cholesterol: greater than 239 mg/dL LDL Cholesterol Calculated 84 <100 mg/dL [facility] Comment:Desirable LDL: less than 100 mg/dLNear Optimal/Above Optimal LDL: 110- 129 mg/dLBorderline High LDL: 130-159 mg/dLHigh LDL: 160-189 mg/dLVery High LDL: greater than or equal to 190 mg/dL HDL Cholesterol 49 >40 mg/dL [facility] Comment:Desirable HDL: great er than 40 mg/dL Note: This HDL assay may give artificially low results in patients with liver disease. Blood Venous blood specimen / Unknown 03/15/2025 10:43 AM EDT 03/15/2025 1:07 PM EDT Kortney Alan FELTING MACHINE OPERATOR HELPER LAB BLOOD ORDERABLES Radha l Result [facility] [address] [place] [phone] [phone] * (ABNORMAL) Comprehensive Metabolic Panel (03/15/2025 10:43 AM EDT) Sodium 139 135 - 145 mmol/L [facility] Potassium 3.7 3.3 - 5.1 mmol/L [facility] Chloride 105 96 - 108 mmol/L [facility] Carbon Dioxide 27 22 - 29 mmol/L [facility] Anion Gap 11(L) 12 - 20 [facility] Urea Nitrogen (BUN) 7(L) 9 - 16 mg/dL [facility] Creatinine, Serum 0.64 0.5 - 1.4 mg/dL [facility] Estimated Glomerular Filt Rate >60 [facility] Comment:Chronic Kidney Disea se: Estimated GFR < 60 mL/min/1.49k2Rmkvqu Kidney Disease: Estimated GFR < 15 mL/min/1.73m2 Glucose 109 60 - 115 mg/dL [facility] Calcium 8.8 8.4 - 10.2 mg/dL [facility] Bilirubin, Total 0.4 0.0 - 1.0 mg/dL [facility] Aspartate Amino Transferase 21 5 - 31 U/L [facility] Alanine Aminotransferase 17 0 - 31 U/L [facility] Total Protein 7.6 6.5 - 8.0 g/dL [facility] Albumin Level 4.0 3.5 - 5.0 g/dL [facility] Alkaline Phosphatase 78 39 - 117 U/L [facility] Blood Venous blood specimen / Unknown 03/15/2025 10:43 AM EDT 03/15/2025 1:07 PM EDT Kortney Alan FELTING MACHINE OPERATOR HELPER LAB BLOOD ORDERABLES Radha l Result [facility] [address] [place] [phone] [phone] * HPV DNA, HIGH RISK, CERVICAL (09/10/2020 12:02 PM EDT) HPV DNA, HIGH RISK, CERVICAL Not Detected NOT DETECTED [facility] Comment: Not Detected ?? High Risk HPV types (16,18,31,33,35,39,45,51,52, 56,58,59,66,68) were not detected. Other HPV types which cause anogenital lesions may be present. The significance of the other types of HPV in malignant processes has not been established. ?? Methodology: Real Time PCR ? 09/10/2020 12:0 2 PM EDT Tasha Fairbanks NP HISTORICAL/NON ORDERABLE LABS Fi nal Result Performing Organization Address City/[facility]/ZIP Co de Phone Number [facility] [address] * THINPREP TIS PAP (09/10/2020 12:02 PM EDT) Clinical Information: SEE COMMENT [facility] Comment:None given COMMENT SEE COMMENT [...] has been evaluated with computer assisted technology. Non Destructive Testing Engineer: SEE COMMENT [facility] Comment: BK,CT(ASCP) CT screening location: [address] Infection SEE COMMENT [facility] LAB [...] NP LAB PATHOLOGY ORDERABLES Final R esult [facility] [address] from Last 3 Months or Most Recently Relevant to Health Maintenance Insurance [address] [place], [place] [address] Care Teams Ordnance Engineer Relationship Specialty Start Date End Date Kortney Alan CNP [address] [place] [address] PCP - General Family Medicine 12/08/24
--- NOTE | 2025-04-17 08:29 | MHC.OFFVIS ---
Intake Visit Reasons: PO RT cubital/CTR 04/02/25 AR Intake Note: Vickie 40 yr old female presents today for her PO visit for her right cubital/CTR 04/02/[address] Francis. States symptoms have improved slightly and she notices her symptoms come and go. Concrete Batching Plant Operator Services: Concrete Batching Plant Operator Present (Oscar ([id number])) Allergies amoxicillin Allergy (Intermediate, Verified 04/17/25 08:36) Hives aspirin Allergy (Intermediate, Verified 04/17/25 08:36) Rash HPI HPI PO RT cubital/CTR 04/02/25 AR: Details: Vickie 40 yr old female presents today for her PO visit for her right cubital/CTR 04/02/[address] Francis. States symptoms have improved slightly and she notices her symptoms come and go. Reports no pain and incision sites. No other acute complaints or concerns at this time. [facility] Medical History Marijuana use History of ganglion cyst Obesity (BMI 30-39.9) Surgical History Hx of tubal ligation (~2010) Family History (Updated 03/29/25 @ 14:28 by Janelle Christie RN) Son Adverse effect of anesthesia Social History Household Members: Children Household Members Other:: children 18+14 yrs old Housing: Apartment Are you a primary child care team lead to a significant other at home: Yes (children, sister to help post-op) Do you presently have visiting nurse or other home services: No 75 years or older and lives alone: No Patient Tobacco Use Status: Never used Tobacco Substance Use Type: Marijuana Current occupational status: unemployed Current occupation: rt handed Review of Systems Const All systems reviewed & are unremarkable except as noted in HPI and below Physical Exam Extrem Other: Neuro: Normal sensation in the tips of all digits of bilateral hands in the office today No thenar or intrinsic wasting. Good APB muscle firing and good finger cross. Vascular: Capillary refill brisk. ROM: Patient can make a fist and extend all their digits. Skin: Well approximated and well healing incision sites noted on the right wrist and right elbow Slight redness around incision site on right elbow No lacerations or abrasions noted. General: No ecchymosis. No erythema on wrist or evidence of infection. Assessment & Plan Assessment & Plan (1) Cubital tunnel syndrome, bilateral: Code(s): G56.23 - Lesion of ulnar nerve, bilateral upper limbs Category: Medical (2) Bilateral carpal tunnel syndrome: Code(s): G56.03 - Carpal tunnel syndrome, bilateral upper limbs Category: Medical Plan 1. Status post right cubital and right carpal tunnel releases Partial Symptom relief postop Patient appears to be recovering fairly well postoperatively Patient is educated about the typical recovery course Patient is prescribed a one-week course of cephalexin for redness surrounding incision site Patient will follow-up in 1 week for wound check, sooner with any acute concerns Medications: New cephalexin 500 mg PO QID 28 tabs 0RF Coding Level of Care Code Global (61541) Diagnoses Cubital tunnel syndrome, bilateral G56.23 Bilateral carpal tunnel syndrome G56.03
== END 2025-04-17 09:07 | disposition home or self-care (01) ==
LOC: HO.HOS 08:11
DX: G56.23 Lesion of ulnar nerve, bilateral upper limbs (principal); G56.03 Carpal tunnel syndrome, bilateral upper limbs
CPT/HCPCS: 99024

== ENCOUNTER → 2025-04-17 08:11 | Outpatient (BNVA) | payer MEDICAID, SELFPAY | DX: Z48.811 Encounter for surgical aftercare following surgery on the nervous system (principal); G56.22 Lesion of ulnar nerve, left upper limb; G56.02 Carpal tunnel syndrome, left upper limb | CPT/HCPCS: 99212 ==

== ENCOUNTER 2025-05-09 08:23 | Outpatient (AMB) | payer MEDICAID, SELFPAY ==
--- NOTE | 2025-05-09 08:30 | A.OFFVIS_ITS ---
Intake Visit Reasons: PO-RT cubital/CTR 04/02/25 AR Intake Note: Cassi is a 39 year old right hand dominant female who presents today post operatively status post right cubital and carpal tunnel release DOS: 04/02/[address] Nakia Francis. Patient is here today for a wound check. Regional Maintenance Manager Required: Yes Regional Maintenance Manager Language: Teaching Artist Services: Regional Maintenance Manager Present (Sandra QUINTANILLA/LARISA) Allergies amoxicillin Allergy (Intermediate, Verified 05/09/25 08:35) Hives aspirin Allergy (Intermediate, Verified 05/09/25 08:35) Rash HPI HPI PO-RT cubital/CTR 04/02/25 AR: Details: Cassi is a 39 year old right hand dominant female who presents today post operatively status post right cubital and carpal tunnel release DOS: 04/02/[address] Nakia Francis. Patient is here today for a wound check. Reports improvement in her pain and redness. No other acute complaints or concerns at this time. [facility] Medical History Marijuana use History of ganglion cyst Obesity (BMI 30-39.9) Surgical History Hx of tubal ligation (~2010) Family History (Updated 03/29/25 @ 14:28 by Janelle Christie RN) Son Adverse effect of anesthesia Social History Household Members: Children Household Members Other:: children 18+14 yrs old Housing: Apartment Are you a primary lawn care technician to a significant other at home: Yes (children, sister to help post-op) Do you presently have visiting nurse or other home services: No 75 years or older and lives alone: No Patient Tobacco Use Status: Never used Tobacco Substance Use Type: Marijuana Current occupational status: unemployed Current occupation: rt handed Review of Systems Const All systems reviewed & are unremarkable except as noted in HPI and below Physical Exam Extrem Other: Neuro: Normal sensation in the tips of all digits of bilateral hands in the office today No thenar or intrinsic wasting. Good APB muscle firing and good finger cross. Vascular: Capillary refill brisk. ROM: Patient can make a fist and extend all their digits. Skin: Well approximated and well healing incision sites noted on the right wrist and right elbow No lacerations or abrasions noted. General: No ecchymosis. No erythema or evidence of infection. Assessment & Plan Assessment & Plan (1) Cubital tunnel syndrome, bilateral: Code(s): G56.23 - Lesion of ulnar nerve, bilateral upper limbs Category: Medical (2) Bilateral carpal tunnel syndrome: Code(s): G56.03 - Carpal tunnel syndrome, bilateral upper limbs Category: Medical Plan 1. Status post right cubital and right carpal tunnel releases Partial Symptom relief postop Patient appears to be recovering fairly well postoperatively Patient is educated about the typical recovery course No further acute follow-up indicated, as patient appears to be recovering quite well Patient is amenable to this plan Follow-up as needed, as she would not like to have further surgery at this time Coding Level of Care Code Global (71544) Diagnoses Cubital tunnel syndrome, bilateral G56.23 Bilateral carpal tunnel syndrome G56.03
--- OUTSIDE RECORDS SUMMARY | 2025-05-09 08:41 | XMS_ITS | Clinical Summary ---
Author Organization [email or web address] Address [address] [facility] [address] [place] [address] Care Team Providers Care Plant Operator/Shift Supervisor Name Role Phone Kortney Alan CNP Primary Care Provider [phone] Allergies Active Allergy Reactions Criticality Noted Date [...] Encounters Date Type Department Care Team Description 05/03/2025 Telephone [facility] [address] [place] [phone] Joana Lake MA CHARTPREP 03/21/2025 Telephone [facility] [address] [place] [phone] Arlet Wagner [place] Appointment Request 03/20/2025 Telephone [facility] [address] [place] [address] Kortney Alan CNP Results 03/07/2025 2:45 PM EDT Office Visit [address] [address] Kortney Alan CNP Encounter for screening examination for sexually transmitted disease (Primary Dx); Healthcare maintenance; Cyst of uterus 03/07/2025 Travel 02/28/2025 Patient Outreach [facility] [address] [place] [address] Kortney Alan CNP Pre-visit Planning (SDOH screening negative and Tobacco screening negative) 02/28/[address] [address] Kortney Alan CNP Chart Prep 02/12/[address] [address] Dipti Smith CNM from Last 3 Months Immunizations Immunization Administration [...] 94 03/07/2025 2:17 PM EDT Temperature 36.5 C (97.7 F) 03/07/2025 2:17 PM EDT Respiratory Rate 20 03/07/2025 2:17 PM EDT [...] Care Team (Late st Contact Info) Description 06/14/2025 11:15 AM EDT Office Visit [facility] [address] [place] [address] Kirsten Morfin, OD [address] [place] [address] Health Maintenance Due Date Last Done Comments Disability Screening 1986 Alcohol/Substance Use Screening 1998 Hepatitis B Vaccines (1 of 3 - 19+ 3-dose series) 2005 COVID-19 Vaccine (2023-2 5 season) 2024 02/09/2022, 01/19/2022 Influenza Vaccine (Season Ended) 2025 01/30/2016 Cervical Cancer Screening 09/10/2025 HPV/Cotest 09/10/2025 [...] Years) and At-Risk Patients (6 to 49) Years Aged Out No longer eligible b ased [...] Blood Count 9.4 4.8 - 10.8 X10*3/uL [facility] Red Blood Count 4.66 4.20 - 5.50 X10*6/uL [facility] Hemoglobin 12.4 12.0 - 16.0 g/dl [facility] Hematocrit 39.0 37.0 - 47.0 % [facility] Mean Corpuscular Volume 83.7 80.0 - 98.0 fL [facility] Mean Corpuscular Hemoglobin 26.6(L) 27.0 - 33.0 pg [facility] Mean Corpuscular HGB Conc 31.8 31.0 - 35.0 g/dl [facility] Red Cell Distribution Width 17.2(H) 11.0 - 16.0 % [facility] Platelet Count 262 160 - 400 X10*3/uL [facility] Mean Platelet Volume 11.5 9.4 - 12.3 fL [facility] Neutrophils Percent Auto 69.1 45 - 73 % [facility] Imm Gran Pct Auto 0.4 0.0 - 0.4 % [facility] Lymphocytes Percent Auto 20.9 20 - 40 % [facility] Monocytes Percent Auto 7.9 2 - 11 % [facility] Eosinophils Percent Auto 1.5 0 - 4 % [facility] Basophils Percent Auto 0.2 0 - 2 % [facility] NRBC Pct Auto 0.0 0.0 - 0.2 /100WBC [facility] Neutrophils Absolute Auto 6.5 2.0 - 8.3 x10*3/uL [facility] Imm Gran Abs Auto 0.04(H) 0.00 - 0.03 X10*3/uL [facility] Lymphocytes Absolute Auto 2.0 1.2 - 4.9 X10*3/uL [facility] Monocytes Absolute Auto 0.7 0.1 - 1.2 X10*3/uL [facility] Eosinophils Absolute Auto 0.1 0.0 - 0.4 X10*3/uL [facility] Basophils Absolute Auto 0.0 0.0 - 0.2 X10*3/uL [facility] NRBC Abs Auto 0.000 0.0 - 0.012 X10*3/uL [facility] Blood Venous blood specimen / Unknown 03/15/2025 10:43 AM EDT 03/15/2025 1:07 PM EDT us Kortney Alan [employer] LAB BLOOD ORDERABLES Radha l Result [facility] [address] [place] [phone] * Hepatitis C Antibody with Reflex to HCV, RNA, Quantitative, Real-Time PCR (03/15/2025 10:43 AM EDT) [facility] Hepatitis C Antibody Nonreactive Nonreactive [facility] Comment:Antibodies to HCV no t detected; does not exclude early acuteHCV infection. Blood Venous blood specimen / Unknown 03/15/2025 10:43 AM EDT 03/15/2025 1:07 PM EDT [facility] LAB BLOOD ORDERABLES Radha ethel Result [facility] [address] [place] [phone] * Chlamydia/N. Gonorrhoeae RNA, TMA, Urogenitial (03/15/2025 10:43 AM EDT) [facility] CT PCR NOT DETECTED Not Detect. [facility] Comment:A not detected test result [...] psychologicalconsequences. NG PCR NOT DETECTED Not Detect. [facility] Comment:A not detected test result [...] AM EDT 03/15/2025 1:02 PM EDT Narrative [facility] - 03/15/2025 5:17 PM EDT Urine [facility] LAB MICROBIOLOGY - GENERA L ORDERABLES Final Result Performing Organization Address [facility] de Phone Number [facility] [address] [place] [phone] * RPR (Monitor) with Reflex to??Titer (03/15/2025 10:43 AM EDT) RPR (Monitor) w/Refl Titer NON-REACTI VE NON-REACT TABITHA [facility] Comment:THIS TEST WAS PERFOR MED AT:[facility] [address] [phone] BANG MD Rapid Plasma Reagin Ab Titer TNP [facility] Blood Venous blood specimen / Unknown 03/15/2025 10:43 AM EDT 03/15/2025 1:07 PM EDT [facility] LAB BLOOD ORDERABLES Radha l Result Performing Organization Address [facility] Co de Phone Number [facility] [address] [place] [address] [phone] * HIV-1/2 Antigen and Antibodies, Fourth Generation, with Reflexes (03/15/2025 10:43 AM EDT) HIV AB/AG Nonreactive Nonreactive [facility] Comment:HIV-1 p24 Ag and/or HIV-1/HIV-2 Ab not detected.A test result that is nonreactive does not exclude thepossibility of exposure to or infection with HIV-1 and/orHIV-2. Nonreactive results in this assay for individualswith prior exposure to HIV-1 and/or HIV-2 may be due toantigen and antibody levels that are below the limit ofdetection of this assay.The [employer] HIV Ag/Ab Combo assay result andsupplemental assay results should be interpreted inconjunction with the patient's clinical presentation,history and other laboratory results. If the results areinconsistent with clinical evidence, additional testing issuggested to confirm the result. Blood Venous blood specimen / Unknown 03/15/2025 10:43 AM EDT 03/15/2025 1:07 PM EDT [facility] LAB BLOOD ORDERABLES Radha ethel Result [facility] [address] [place] [phone] * (ABNORMAL) Hemoglobin A1c (03/15/2025 10:43 AM EDT) Hemoglobin A1c 6.2(H) <6.0 % [facility] Comment:Hemoglobin A1C Refer ence Range Adults: 4.8 - 6.0 % Non diabetic: < 6.0 % Goal: < 7.0 %Additional Action Suggested: > 8.0 %Note: Hemoglobin A1c results are invalid for patients with abnormal amounts of HbF. Blood transfusions may impact the HbA1c concentration in the patient sample. Estimated Average Glucose 131 mg/dL [facility] Comment:eAG = Estimated ave rage glucose which is %A1C expressed asaverage glucose, using the formula of the X0M-LidqesqWayturd Glucose study (ADAG), Diabetes Care, Vol.31,#8,Jun. 2007 Blood Venous blood specimen / Unknown 03/15/2025 10:43 AM EDT 03/15/2025 1:07 PM EDT [facility] LAB BLOOD ORDERABLES Radha l Result Performing Organization Address [facility] Co de Phone Number [facility] [address] [place] [phone] * Lipid Panel, Standard (03/15/2025 10:43 AM EDT) Triglycerides 95 <150 mg/dL [facility] Comment:Desirable Triglyceri de: less than 150 mg/dLBorderline High Triglyceride 150-199 mg/dLHigh Triglyceride: 200-499 mg/dLVery High Triglyceride: greater than or equal to 5OO mg/dL Cholesterol 152 <200 mg/dL [facility] Comment:Desirable Cholestero l: less than 200 mg/dLBorderline High Cholesterol: 200-239 mg/dLHigh Cholesterol: greater than 239 mg/dL LDL Cholesterol Calculated 84 <100 mg/dL [facility] Comment:Desirable LDL: less than 100 mg/dLNear Optimal/Above Optimal LDL: 110- 129 mg/dLBorderline High LDL: 130-159 mg/dLHigh LDL: 160-189 mg/dLVery High LDL: greater than or equal to 190 mg/dL HDL Cholesterol 49 >40 mg/dL [facility] Comment:Desirable HDL: great er than 40 mg/dL Note: This HDL assay may give artificially low results in patients with liver disease. Blood Venous blood specimen / Unknown 03/15/2025 10:43 AM EDT 03/15/2025 1:07 PM EDT [facility] BLOOD ORDERABLES Radha l Result Performing Organization Address [facility]/ZIP Co de Phone Number [facility] [address] [place] [phone] * (ABNORMAL) Comprehensive Metabolic Panel (03/15/2025 10:43 AM EDT) Sodium 139 135 - 145 mmol/L [facility] Potassium 3.7 3.3 - 5.1 mmol/L [facility] Chloride 105 96 - 108 mmol/L [facility] Carbon Dioxide 27 22 - 29 mmol/L [facility] Anion Gap 11(L) 12 - 20 [facility] Urea Nitrogen (BUN) 7(L) 9 - 16 mg/dL [facility] Creatinine, Serum 0.64 0.5 - 1.4 mg/dL [facility] Estimated Glomerular Filt Rate >60 [facility] Comment:Chronic Kidney Disea se: Estimated GFR < 60 mL/min/[id number] Kidney Disease: Estimated GFR < 15 mL/min/1.73m2 Glucose 109 60 - 115 mg/dL [facility] Calcium 8.8 8.4 - 10.2 mg/dL [facility] Bilirubin, Total 0.4 0.0 - 1.0 mg/dL [facility] Aspartate Amino Transferase 21 5 - 31 U/L [facility] Alanine Aminotransferase 17 0 - 31 U/L [facility] Total Protein 7.6 6.5 - 8.0 g/dL [facility] Albumin Level 4.0 3.5 - 5.0 g/dL [facility] Alkaline Phosphatase 78 39 - 117 U/L [facility] Blood Venous blood specimen / Unknown 03/15/2025 10:43 AM EDT 03/15/2025 1:07 PM EDT [facility] LAB BLOOD ORDERABLES Radha l Result [facility] [address] [place] [phone] * HPV DNA, HIGH RISK, CERVICAL (09/10/2020 12:02 PM EDT) HPV DNA, HIGH RISK, CERVICAL Not Detected NOT DETECTED [facility] Comment: Not Detected High Risk HPV types (16,18,31,33,35,39,45,51,52, 56,58,59,66,68) were not detected. Other HPV types which cause anogenital lesions may be present. The significance of the other types of HPV in malignant processes has not been established. Methodology: Real Time PCR 09/10/2020 12:0 2 PM EDT us Tasha Fairbanks NP HISTORICAL/NON ORDERABLE LABS Fi nal Result Performing Organization Address [facility]/ZIP Co de Phone Number [facility] [address] [place] [address], * THINPREP TIS PAP (09/10/2020 12:02 PM EDT) Clinical Information: SEE COMMENT [facility] Comment:None given COMMENT [facility] Comment: EXPLANATORY NOTE: The Pap is a screening test for cervical cancer. It is not a diagnostic test and is subject to false negative and false positive results. It is most reliable when a satisfactory sample, regularly obtained, is submitted with relevant clinical findings and history, and when the Pap result is evaluated along with historic and current clinical information. COMMENT: [facility] Comment: This Pap test has been evaluated with computer assisted technology. Information Technology Account Manager: SEE COMMENT [facility] Comment: BK,CT(ASCP) CT screening location: [address] Infection [facility] Comment:Trichomonas vaginali s identified. Interpretation/Resu lt: SEE COMMENT [facility] Comment:Negative for intraep ithelial lesion or malignancy. LMP: [facility] Comment:NONE GIVEN Prev. BX: NONE GIVEN [facility] Prev. PAP: SEE COMMENT [facility] Comment:NONE GIVEN SOURCE: SEE [facility]MENT [facility] Comment:None given Statement Of Adequacy: SEE COMMENT [facility] Comment: Satisfactory for evaluation. Endocervical/transformation zone component present. 09/10/2020 12:0 2 PM EDT us Tasha Fairbanks NP LAB PATHOLOGY ORDERABLES Final R esult Performing Organization Address City/[facility]/ZIP Co de Phone Number [facility] [address] from Last 3 Months or Most Recently Relevant to Health Maintenance Insurance C3 Care Teams Plant Operator/Shift Supervisor Relationship Specialty Start Date End Date Kortney Alan CNP [address] [place] [phone] PCP - General Family Medicine 12/08/24
== END 2025-05-09 08:53 | disposition home or self-care (01) ==
LOC: HO.HOS 08:23
DX: G56.23 Lesion of ulnar nerve, bilateral upper limbs (principal); G56.03 Carpal tunnel syndrome, bilateral upper limbs
CPT/HCPCS: 99024

== ENCOUNTER → 2025-05-09 08:23 | Outpatient (BNVA) | payer MEDICAID, SELFPAY | DX: G56.23 Lesion of ulnar nerve, bilateral upper limbs (principal); G56.03 Carpal tunnel syndrome, bilateral upper limbs | CPT/HCPCS: 99212 ==